=== PATIENT | male | born 1940 | race Caucasian/White ===

== ENCOUNTER 2018-12-17 10:47 | Emergency (ER) | payer OTHER ==
[2018-12-17] MEDS ORDERED: LIDOCAINE 1% W/EPI 1:100,000 MDV 20 ML VIAL ONE (11:06)
[2018-12-17] MEDS ORDERED: TETANUS & DIPHTHERIA TOX,ADULT 0.5 ML VIAL ONE (11:46)
--- NOTE | 2018-12-17 11:47 | ER ---
Nurse's Notes [facility] Name: Rajendra Collado Age: 77 yrs Sex: Male : 1940 Arrival Date: 12/17/2018 Time: 10:49 Bed 16 Private MD: Diagnosis: Laceration without foreign body of left hand Presentation: 12/17 10:59 Presenting complaint: Patient states: "I cut my left hand with a mirror". Pt's aa5 states "I think he takes blood thinners but I don't remember the name". Laceration noted to left hand,moderate bleeding noted, dressing applied. 10:59 Transition of care: patient was not received from another setting of care. Onset of aa5 symptoms was December 17, 2018. Risk Assessment: Do you want to hurt yourself or someone else? Patient reports no desire to harm self or others. Initial Sepsis Screen: Does the patient meet any 2 criteria? No. Patient's initial sepsis screen is negative. Does the patient have a suspected source of infection? No. Patient's initial sepsis screen is negative. Care prior to arrival: None. 10:59 Method Of Arrival: Ambulatory aa5 10:59 Acuity: CHRIS 4 aa5 11:10 Complicating Factors: There are no complicating factors for this patient. rb1 Historical: - Allergies: 11:00 No Known Allergies; aa5 - PMHx: 11:00 Hypertension; Myocardial infarction; aa5 - PSHx: 11:00 Heart stents; aa5 - Immunization history:: Adult Immunizations up to date. - Ebola Screening: : No symptoms or risks identified at this time. - Social history:: Smoking status: Patient/guardian denies using tobacco. Screenin:10 Abuse screen: Denies threats or abuse. Nutritional screening: No deficits noted. rb1 Tuberculosis screening: No symptoms or risk factors identified. Fall Risk None identified. Assessment: 11:10 General: Appears in no apparent distress. comfortable, Behavior is calm, cooperative. rb1 Pain: Denies pain. Neuro: Level of Consciousness is awake, alert, obeys commands, Oriented to person, place, time, situation. Cardiovascular: Capillary refill < 3 seconds is brisk in bilateral fingers. Respiratory: Airway is patent Respiratory effort is even, unlabored, Respiratory pattern is regular, symmetrical. GI: No signs and/or symptoms were reported involving the gastrointestinal system. : No signs and/or symptoms were reported regarding the genitourinary system. Derm: Skin is pink, warm \\T\\ dry. Musculoskeletal: Range of motion: intact in all extremities. Injury Description: Laceration sustained to medial aspect of left hand is bleeding moderately, is bleeding moderately. 12:00 Reassessment: Patient appears in no apparent distress at this time. Patient and/or rb1 family updated on plan of care and expected duration. Pain level reassessed. Patient is alert, oriented x 3, equal unlabored respirations, skin warm/dry/pink. Vital Signs: 11:00 BP 148 / 84; Pulse 65; Resp 16 S; Temp 98.6(O); Pulse Ox 98% on R/A; aa5 12:00 BP 141 / 91; Pulse 64; Resp 17; Pulse Ox 99% on R/A; Pain 0/10; rb1 ED Course: 10:49 Patient arrived in ED. as 10:59 Shilo Brown PA is PHCP. jr8 10:59 Jaquan Zambrano MD is Attending Physician. jr8 10:59 Arm band placed on Patient placed in an exam room, on a stretcher. aa5 11:02 Triage completed. aa5 11:10 Patient has correct armband on for positive identification. Bed in low position. Call rb1 light in reach. Side rails up X 1. Pulse ox on. NIBP on. 11:44 Claribel Real, RN is Primary Nurse. rb1 12:18 No provider procedures requiring assistance completed. rb1 12:18 Patient did not have IV access during this emergency room visit. rb1 Administered Medications: 11:40 Drug: Lidocaine-Epinephrine -1%: (1:100,000) 20 ml Volume: 20 ml; Route: Infiltration; jr8 12:04 Drug: Tetanus-Diphtheria Toxoid Adult 0.5 ml {Instrumental Teacher: [employer]. Exp: rb1 07/26/2020. Lot #: [id number]. } Route: IM; Site: left deltoid; 12:18 Follow up: Response: No adverse reaction rb1 Outcome: 11:47 Discharge ordered by . jr8 12:18 Patient left the ED. rb1 12:18 Discharged to home ambulatory, with family. rb1 12:18 Condition: stable 12:18 Discharge instructions given to patient, Instructed on discharge instructions, follow up and referral plans. Demonstrated understanding of instructions, follow-up care, Prescriptions given X none Signatures: Audrey Huang Audri, RN RN aa5 Shilo Brown PA PA jr8 Claribel Real, RN RN rb1 Corrections: (The following items were deleted from the chart) 12:34 12:30 Patient left the ED. rb1 rb1
--- NOTE | 2018-12-17 11:48 | EDPHYS ---
Physician Documentation [facility] Name: Rajendra Collado Age: 77 yrs Sex: Male : 1940 Arrival Date: 12/17/2018 Time: 10:49 Bed 16 Private MD: ED Physician Jaquan Zambrano HPI: 12/17 11:40 This 77 yrs old Male presents to ER via Ambulatory with complaints of jr8 Laceration To Hand. 11:40 The patient has a laceration occurred at home, and there are no complicating factors. jr8 The laceration(s) is(are) located on the medial aspect of left hand. Onset: The symptoms/episode began/occurred just prior to arrival. Pt was carrying broken mirror and if slipped causing an approximately 5cm laceration to medial aspect of left hand. Historical: - Allergies: 11:00 No Known Allergies; aa5 - PMHx: 11:00 Hypertension; Myocardial infarction; aa5 - PSHx: 11:00 Heart stents; aa5 - Immunization history:: Adult Immunizations up to date. - Ebola Screening: : No symptoms or risks identified at this time. - Social history:: Smoking status: Patient/guardian denies using tobacco. ROS: 11:40 Constitutional: Negative for fever, chills, and weight loss, Eyes: Negative for injury, jr8 pain, redness, and discharge, ENT: Negative for injury, pain, and discharge, Neck: Negative for injury, pain, and swelling, Cardiovascular: Negative for chest pain, palpitations, and edema, Respiratory: Negative for shortness of breath, cough, wheezing, and pleuritic chest pain, Abdomen/GI: Negative for abdominal pain, nausea, vomiting, diarrhea, and constipation, Back: Negative for injury and pain, MS/Extremity: Negative for injury and deformity, Neuro: Negative for headache, weakness, numbness, tingling, and seizure. 11:40 Skin: Positive for laceration(s). Exam: 11:40 Constitutional: This is a well developed, well nourished patient who is awake, alert, jr8 and in no acute distress. Head/Face: Normocephalic, atraumatic. Eyes: Pupils equal round and reactive to light, extra-ocular motions intact. Lids and lashes normal. Conjunctiva and sclera are non-icteric and not injected. Cornea within normal limits. Periorbital areas with no swelling, redness, or edema. ENT: Nares patent. No nasal discharge, no septal abnormalities noted. Tympanic membranes are normal and external auditory canals are clear. Oropharynx with no redness, swelling, or masses, exudates, or evidence of obstruction, uvula midline. Mucous membranes moist. Neck: Trachea midline, no thyromegaly or masses palpated, and no cervical lymphadenopathy. Supple, full range of motion without nuchal rigidity, or vertebral point tenderness. No Meningismus. Chest/axilla: Normal chest wall appearance and motion. Nontender with no deformity. No lesions are appreciated. Cardiovascular: Regular rate and rhythm with a normal S1 and S2. No gallops, murmurs, or rubs. Normal PMI, no JVD. No pulse deficits. Respiratory: Lungs have equal breath sounds bilaterally, clear to auscultation and percussion. No rales, rhonchi or wheezes noted. No increased work of breathing, no retractions or nasal flaring. Abdomen/GI: Soft, non-tender, with normal bowel sounds. No distension or tympany. No guarding or rebound. No evidence of tenderness throughout. MS/ Extremity: Pulses equal, no cyanosis. Neurovascular intact. Full, normal range of motion. Neuro: Awake and alert, GCS 15, oriented to person, place, time, and situation. Cranial nerves II-XII grossly intact. Motor strength 5/5 in all extremities. Sensory grossly intact. Cerebellar exam normal. Normal gait. 11:40 Musculoskeletal/extremity: ROM: intact in all extremities, Circulation is intact in all extremities. Pulses: noted to be 3+ in the right radial artery and left radial artery, Sensation intact. 11:40 Skin: injury, laceration(s), the wound is approximately 5 cm(s), with a depth of 1 cm(s), of the medial aspect of left hand. Vital Signs: 11:00 BP 148 / 84; Pulse 65; Resp 16 S; Temp 98.6(O); Pulse Ox 98% on R/A; aa5 12:00 BP 141 / 91; Pulse 64; Resp 17; Pulse Ox 99% on R/A; Pain 0/10; rb1 Laceration: 11:43 Wound Repair of 5cm ( 2.0in ) subcutaneous laceration to medial aspect of left hand. jr8 Linear shaped.. Minimal bleeding noted.. Distal neuro/vascular/tendon intact. Anesthesia: Local anesthetic administered with 5 mls of 1% lidocaine w/ Epi. Wound prep: Moderate cleansing by me, Wound irrigation with saline by me, Wound explored moderately, Copious irrigation. Skin closed with 5 4-0 Prolene using simple sutures and sterile technique. Patient tolerated well. MDM: 10:59 Patient medically screened. jr8 11:44 Data reviewed: vital signs, nurses notes. Data interpreted: Pulse oximetry: on room air jr8 is 98 %. Interpretation: normal. Counseling: I had a detailed discussion with the patient and/or guardian regarding: the historical points, exam findings, and any diagnostic results supporting the discharge/admit diagnosis. ED course: Hemostasis achieved, wound well approximated, discussed wound care and follow up instructions, CMS intact, no apparent nerve injury. ROM intact in wrist and all fingers. . 12/17 11:40 Order name: Suture Tray Setup; Complete Time: 12:04 jr8 Administered Medications: 11:40 Drug: Lidocaine-Epinephrine -1%: (1:100,000) 20 ml Volume: 20 ml; Route: Infiltration; jr8 12:04 Drug: Tetanus-Diphtheria Toxoid Adult 0.5 ml {Hay Baler: [employer]. Exp: rb1 07/26/2020. Lot #: [id number]. } Route: IM; Site: left deltoid; 12:18 Follow up: Response: No adverse reaction rb1 Disposition: 12:39 Co-signature as Attending Physician, Jaquan Zambrano MD. rn Disposition: 12/17/18 11:47 Discharged to Home. Impression: Laceration without foreign body of left hand. - Condition is Stable. - Discharge Instructions: Laceration Care, Adult, Sutured Wound Care. - Medication Reconciliation Form, Thank You Letter form. - Follow up: Private Physician; When: 7 - 10 days; Reason: Recheck today's complaints, Re-evaluation by your physician, suture removal . - Problem is new. - Symptoms have improved. - Notes: Have stitches removed in 7-10 days See PCP or return to ED if signs of infection including extensive redness, swelling, worsening pain, or foul drainage. Signatures: Jaquan Zambrano MD MD rn Calderon, Audri, RN RN aa5 Shilo Brown PA PA jr8 Claribel Real, RN RN rb1 Corrections: (The following items were deleted from the chart) 12:30 11:47 12/17/2018 11:47 Discharged to Home. Impression: Laceration without foreign body rb1 of left hand. Condition is Stable. Forms are Medication Reconciliation Form, Thank You Letter, Antibiotic Education, Prescription Opioid Use. Follow up: Private Physician; When: 7 - 10 days; Reason: Recheck today's complaints, Re-evaluation by your physician, suture removal . Problem is new. Symptoms have improved. jr8
[2018-12-17 13:03] VITALS: TEMP 98.6
[2018-12-17 13:05] VITALS: BP 141/91; O2SAT 99
== END 2018-12-17 12:30 | disposition home or self-care (01) ==
LOC: ER 10:47
PROC: 0JQK0ZZ Repair Left Hand Subcutaneous Tissue and Fascia, Open Approach (ICD-10-PCS; principal; 2018-12-17)
DX: S61.412A Laceration without foreign body of left hand, initial encounter (principal); W25.XXXA Contact with sharp glass, initial encounter; Y93.9 Activity, unspecified; Y92.9 Unspecified place or not applicable; Z23 Encounter for immunization
CPT/HCPCS: 90471; 90714; 99283

== ENCOUNTER 2019-12-06 07:32 | Day surgery (SDC) | payer OTHER ==
[2019-12-04 13:55] LABS: Absolute Lymphocytes (CBC) 1.7 K/uL (0.7-4.9); Basophils % 0.6 % (0-1.3); Hematocrit 45.4 % (39.6-49.0); Lymphocytes % 25.8 % (15.3-44.8); MPV 9.4 fL (7.6-11.3); RBC Red Blood Cell Count 4.87 M/uL (4.33-5.43)
[2019-12-04 13:56] LABS: BUN Blood Urea Nitrogen 22 mg/dL (7-18); Bicarbonate 28 mmol/L (21-32); Glucose Level 92 mg/dL (74-106); Potassium 4.1 mmol/L (3.5-5.1); Sodium Level 142 mmol/L (136-145)
--- OUTSIDE RECORDS SUMMARY | 2019-12-06 07:46 | XMS REPORT | Continuity of Care Document ---
:1940 Author Organization [facility] t Address [address] [place] [address] [address]. [address]. [address] [place] [address] Care Team Providers Name Role Phone Doctor Unassigned, Name Attending Clinician Unavailable Problems This patient has no known problems. Allergies, Adverse Reactions, Alerts This patient has no known allergies or adverse reactions. Medications This patient has no known medications. Procedures This patient has no known procedures. Encounters Start End Encounter Admission Attending Care Care Encounter Source Date/Time Date/Time Type Type Clinicians Facility Department ID 2019-08-05 2019-08-05 Orders Doctor MIGUEL [id number] 13 00:00:00 00:00:00 Only UnassignedJOSE CRUZ [id number] [place] [facility] [id number] Results This patient has no known results.
--- OUTSIDE RECORDS SUMMARY | 2019-12-06 07:46 | XMS REPORT | Summary of Care ---
:1940 Author Organization [facility] - Health Address [address] [place] [address] Care Team Providers Name Role Phone Pcp, Does Not Have A Primary Care Provider Encounter Details Date Type Department Care Team Description 08/05/2019 Orders Only [facility] Doctor Unassigned, No [address] [facility] [place] [address] [address] [id number] Allergies No Known Allergiesdocumented as of this encounter (statuses as of 09/08/2019) Medications Not on filedocumented as of this encounter (statuses as of 09/08/2019) Active Problems Not on filedocumented as of this encounter (statuses as of 09/08/2019) Social History Tobacco Use Types Packs/Day Years Used Date Never Assessed Sex Assigned at Date Recorded Not on file Job Start Date Occupation Industry Not on file Not on file Not on file Travel History Travel Start Travel End No recent travel history available. COVID-19 Exposure Response Date Recorded In the last month, have you been in contact Unable to assess 07/09/2019 10:34 AM CDT with someone who was confirmed or suspected to have Coronavirus / COVID-19? documented as of this encounter Last Filed Vital Signs Not on filedocumented in this encounter Plan of Treatment Health Maintenance Due Date Last Done Comments DTaP,Tdap,and Td Vaccines (1 - 1949 Tdap) Depression Screening 1950 Zoster Recombinant Vaccine 1988 (SHINGRIX) (1 of 2) Medicare Wellness Visit 01/01/2004 PNEUMOCOCCAL VACCINES 65+ (1 of 2 01/01/2004 - PCV13) INFLUENZA VACCINE (Season Ended) 2019 12/24/2017, 12/2016, 02/25/2015, Additional history exists documented as of this encounter Procedures Procedure Name Priority Date/Time Associated Diagnosis Comme nts AUTHORIZATION FOR RELEASE Routine 08/05/2019 12:01 AM OF PHI CDT documented in this encounter Results Not on filedocumented in this encounter Insurance Payer Benefit Plan / Subscriber ID Effective Dates Phone Addre ss Type Group MEDICARE MEDICARE PART xxxxxxxxxxx 2003-[place] [phone] Medicare [place] 2 [id number] [place] [id number] documented as of this encounter
[2019-12-06] MEDS ORDERED: GLYCOPYRROLATE 0.2 MG/ML SYR ONE (07:50)
[2019-12-06] MEDS ORDERED: Phenylephrine HCl 10 MG/ML 1 ML VIAL ONE (07:50)
[2019-12-06] MEDS ORDERED: propofoL 200 MG/20 ML VIAL IV ONE ×2 (07:50→08:30)
[2019-12-06] MEDS ORDERED: LIDOCAINE 1% MPF 30 ML VIAL ONE (07:50)
[2019-12-06] MEDS ORDERED: NS 0.9% VIAL 10 ML ONE (07:50)
[2019-12-06] MEDS ORDERED: Ringers Lactate 1,000 ML IV ONE (08:17)
[2019-12-06 09:52] VITALS: BP 118/64; TEMP 98; O2SAT 94
--- NOTE | 2019-12-07 04:28 | ENDO RPT ---
[address], [address] COLONOSCOPY PROCEDURE REPORT EXAM DATE: 12/06/2019 PATIENT NAME: Rajendra Collado MR #: [id number] BIRTHDATE: 1940 ATTENDING: Thong Delong DR STATUS: outpatient MANAGER OF DRILLING: Cortney Dunne RN and Alonso Farr [facility] INDICATIONS: The patient is a 78 yr old Male here for a colonoscopy due to change in bowel habits, weight loss, pencil thin stools PROCEDURE PERFORMED: Screening Colonoscopy MEDICATIONS: Per Anesthesia. ESTIMATED BLOOD LOSS: None CONSENT: The patient understands the risks and benefits of the procedure and understands that these risks include, but are not limited to: sedation, allergic reaction, infection, perforation and/or bleeding. Alternative means of evaluation and treatment include, among others: physical exam, x-rays, and/or surgical intervention. The patient elects to proceed with this endoscopic procedure. DESCRIPTION OF PROCEDURE: During intra-op preparation period all mechanical medical equipment was checked for proper function. Hand hygiene and appropriate measures for infection prevention was taken. Procedure, possible complications, alternatives including, but not limited to possibility of bleeding, perforation, tear, infection, sepsis, need for surgery, need for blood transfusion, were explained to the patient. After the risks, benefits and alternatives of the procedure were thoroughly explained, Informed consent was verified, confirmed and timeout was successfully executed by the treatment team. The patient was placed in the left lateral position. A digital rectal exam was performed and revealed decreased sphincter tone, A digital rectal exam was performed and revealed internal hemorrhoids, and A digital rectal exam was performed and revealed several skin tags. After appropriate level of anesthesia, the scope was passed. The EC-[id number] ([id number]) endoscope was introduced through the anus and advanced to the cecum, which was identified by both the appendix and ileocecal valve. The quality of the prep was fair. The instrument was then slowly withdrawn as the colon was fully examined. Scope withdrawal time was 9 minutes. COLON FINDINGS: There was moderate diverticulosis noted throughout the entire examined colon with associated luminal narrowing. No bleeding was noted from the diverticulosis. Moderate sized internal hemorrhoids were found. Retroflexed views revealed no abnormalities. The scope was then completely withdrawn from the patient and the procedure terminated. ADVERSE EVENTS: There were no complications. IMPRESSIONS: 1. There was moderate diverticulosis noted throughout the entire examined colon 2. Moderate sized internal hemorrhoids RECOMMENDATIONS: 1. await biopsy results 2. follow-up: office 2 week(s) 3. Monitor for any evidence of rectal bleeding. 4. low fiber / diverticular diet 5. increase dietary water 6. hemorrhoidal hygiene RECALL: Thong Delong DR eSigned: Thong Delong DR 12/06/2019 8:59 AM cc: CPT CODES: ICD9 CODES: PATIENT NAME: Rajendra Collado MR#: [id number]
== END 2019-12-06 09:40 | disposition home health service (06) ==
LOC: OR 07:32
PROVIDERS: ATTEND Surgery
PROC: 0DJD8ZZ Inspection of Lower Intestinal Tract, Via Natural or Artificial Opening Endoscopic (ICD-10-PCS; principal; 2019-12-06 08:30)
DX: K57.30 Diverticulosis of large intestine without perforation or abscess without bleeding (principal); R63.4 Abnormal weight loss; R19.4 Change in bowel habit; Z20.828 Contact with and (suspected) exposure to other viral communicable diseases; K64.8 Other hemorrhoids
CPT/HCPCS: 85025; 80048; 36415; 45378; U0002; J2704; J2370; J7120

== ENCOUNTER 2020-09-13 20:48 | Emergency (ER) | payer OTHER ==
--- OUTSIDE RECORDS SUMMARY | 2020-09-13 20:58 | XMS REPORT | Continuity of Care Document ---
:1940 Author Organization [facility] t Address [address] [place] [address] Dr. Wright. [address] [place] [address] Care Team Providers Name Role Phone Doctor [...] ID 2019-08-05 2019-08-05 Orders Doctor MIGUEL [id number] 13 00:00:00 00:00:00 Only UnassignedJOSE CRUZ [id number] [place] [facility] [id number] Results This patient has no known results.
[2020-09-13 21:56] LABS: Absolute Lymphocytes (CBC) 0.9 K/uL (0.7-4.9); Basophils % 0.3 % (0-1.3); Bilirubin Direct 0.3 mg/dL (0-0.2); Bilirubin Total 1.2 mg/dL (0.2-1.0); Lymphocytes % 7.5 % (15.3-44.8); MPV 9.3 fL (7.6-11.3); Potassium 3.4 mmol/L (3.5-5.1); Protein, Total 6.5 g/dL (6.4-8.2)
--- NOTE | 2020-09-13 21:56 | RAD REPORT ---
EXAM DESCRIPTION: RAD - Tib Fib Right - 09/13/2020 9:26 pm CLINICAL HISTORY: Right leg pain FINDINGS: No fracture is seen. Mild anterior soft tissue swelling upper aspect of the lower leg
--- NOTE | 2020-09-13 22:54 | ER ---
Nurse's Notes [facility] Name: Rajendra Collado Age: 79 yrs Sex: Male : 1940 Arrival Date: 09/13/2020 Time: 21:00 Bed 7 Private MD: Diagnosis: Hematoma leg ;Pain in right leg Presentation: 09/13 21:09 Chief complaint: Spouse and/or significant other states: pt fell yesterday was checked bb out by EMS but later started having right leg pain with swelling and bruising. Coronavirus screen: At this time, the client does not indicate any symptoms associated with coronavirus-19. Ebola Screen: No symptoms or risks identified at this time. Initial Sepsis Screen: Does the patient meet any 2 criteria? No. Patient's initial sepsis screen is negative. Does the patient have a suspected source of infection? No. Patient's initial sepsis screen is negative. Risk Assessment: Do you want to hurt yourself or someone else? Unable to obtain. Onset of symptoms was September 13, 2020. 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 - Social history:: Smoking status: unknown. Screenin:20 Abuse screen: Denies threats or abuse. Nutritional screening: No deficits noted. ea Tuberculosis screening: No symptoms or risk factors identified. Fall Risk None identified. Assessment: 21:10 General: Appears in no apparent distress. Behavior is calm, cooperative, appropriate ea for age. Pain: Complains of pain in right lynn. Neuro: Level of Consciousness is awake, alert, obeys commands, Oriented to person. Respiratory: Airway is patent Respiratory effort is even, unlabored, Respiratory pattern is regular, symmetrical. Derm: Bruising that is dark purple, on right lynn blister noted to lynn. 22:52 Reassessment: Patient and/or family updated on plan of care and expected duration. Pain ea level reassessed. Pt alert and oriented to self and place. Respirations even and unlabored. Denies pain at this time. 23:03 Reassessment: Patient and/or family updated on plan of care and expected duration. Pain ea level reassessed. Patient is alert, oriented x 3, equal unlabored respirations, skin warm/dry/pink. Discharge instruction given to patient verbalized the understanding of instruction. Vital Signs: 21:09 BP 138 / 61; Pulse 69; Resp 16 S; Temp 99.5(O); Pulse Ox 96% on R/A; Weight 108.86 kg bb (R); 22:51 BP 130 / 67; Pulse 69; Resp 18; Pulse Ox 98% on R/A; ea ED Course: 21:00 Patient arrived in ED. ag3 21:02 Shilo Brown PA is PHCP. ea 21:02 Jaquan Zambrano MD is Attending Physician. ea 21:10 Lubna Fonseca, HOWARD is Primary Nurse. ea 21:10 Triage completed. bb 21:10 Arm band placed on Patient placed in an exam room, on a stretcher, on pulse oximetry. bb Family accompanied patient. 21:20 Patient has correct armband on for positive identification. Bed in low position. Call ea light in reach. Side rails up X2. 21:26 XRAY Tib Fib RIGHT In Process Unspecified. EDMS 21:33 Inserted saline lock: 20 gauge in right antecubital area, using aseptic technique. jm8 22:02 US Extremity Venous Unilateral Ltd In Process Unspecified. EDMS 22:54 No provider procedures requiring assistance completed. ea 23:03 IV discontinued, intact, bleeding controlled, No redness/swelling at site. Pressure ea dressing applied. Administered Medications: 22:52 Drug: Lidocaine (1 %) 5 mg Route: Infiltration; jm8 22:55 Follow up: Response: No adverse reaction ea Outcome: 22:53 Discharge ordered by . yancy 23:03 Discharged to home via wheelchair, with family. ea 23:03 Condition: stable 23:03 Discharge instructions given to patient, family, Instructed on discharge instructions, follow up and referral plans. medication usage, Demonstrated understanding of instructions, follow-up care, medications, Prescriptions given X 1. 23:04 Patient left the ED. ea Signatures: Dispatcher [employer] EDMS Kate Brown RN RN bb Roszak, Josh, PA PA jr8 Antunez, Elena, RN RN ea Gomez, Roya ag3 Neil Koo, RN RN jm8
--- NOTE | 2020-09-13 22:54 | EDPHYS ---
Physician Documentation [facility] Name: Rajendra Collado Age: 79 yrs Sex: Male : 1940 Arrival Date: 09/13/2020 Time: 21:00 Bed 7 Private MD: ED Physician Jaquan Zambrano HPI: 09/13 22:17 This 79 yrs old Male presents to ER via Wheelchair with complaints of Leg jr8 Pain. 22:17 Onset: The symptoms/episode began/occurred acutely, today. Modifying factors: The jr8 symptoms are alleviated by remaining still, the symptoms are aggravated by weight bearing. Associated signs and symptoms: Pertinent positives: fever. Severity of symptoms: At their worst the symptoms were moderate, in the emergency department the symptoms are unchanged. The patient has not experienced similar symptoms in the past. The patient has not recently seen a physician. of patient stated that she noticed what looked to be like a bruise to his right lynn. Stated that today it has worsened and now has made a blister. Stated that patient normally can get around with assistance but now is unable to bear much weight on that leg. 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 - Social history:: Smoking status: unknown. ROS: 22:17 Eyes: Negative for injury, pain, redness, and discharge, ENT: Negative for injury, jr8 pain, and discharge, Neck: Negative for injury, pain, and swelling, Cardiovascular: Negative for chest pain, palpitations, and edema, Respiratory: Negative for shortness of breath, cough, wheezing, and pleuritic chest pain, Abdomen/GI: Negative for abdominal pain, nausea, vomiting, diarrhea, and constipation, Back: Negative for injury and pain, Skin: Negative for injury, rash, and discoloration, Neuro: Negative for headache, weakness, numbness, tingling, and seizure. 22:17 MS/extremity: Positive for ecchymosis, erythema, pain, swelling, tenderness, warmth, of the right leg. Exam: 22:26 Constitutional: This is a well developed, well nourished patient who is awake, alert, jr8 and in no acute distress. Cardiovascular: Regular rate and rhythm with a normal S1 and S2. No gallops, murmurs, or rubs. Normal PMI, no JVD. No pulse deficits. Respiratory: Lungs have equal breath sounds bilaterally, clear to auscultation and percussion. No rales, rhonchi or wheezes noted. No increased work of breathing, no retractions or nasal flaring. Abdomen/GI: Soft, non-tender, with normal bowel sounds. No distension or tympany. No guarding or rebound. No evidence of tenderness throughout. Back: No spinal tenderness. No costovertebral tenderness. Full range of motion. Skin: Warm, dry with normal turgor. Normal color with no rashes, no lesions, and no evidence of cellulitis. Neuro: Awake and alert, GCS 15, oriented to person, place, and situation. Cranial nerves II-XII grossly intact. Motor strength 5/5 in all extremities. Sensory grossly intact. 22:26 Musculoskeletal/extremity: Extremities: grossly normal except: noted in the right lynn: Patient has 2+ pitting edema on right lower extremity. Mild warmth noted. Mild erythema and bronzing also noted. Patient has about a 2.5 cm raised blood blister with possible exudative debris noted to anterior mid tibia region with surrounding ecchymosis and fluctuance that extends another 5 cm around the blister, ROM: intact in all extremities, Circulation is intact in all extremities. Sensation intact. Vital Signs: 21:09 BP 138 / 61; Pulse 69; Resp 16 S; Temp 99.5(O); Pulse Ox 96% on R/A; Weight 108.86 kg bb (R); 22:51 BP 130 / 67; Pulse 69; Resp 18; Pulse Ox 98% on R/A; ea MDM: 21:17 Patient medically screened. 8 22:50 Data reviewed: vital signs, nurses notes, lab test result(s), radiologic studies, plain jr8 films, ultrasound. Data interpreted: Pulse oximetry: on room air is 96 %. Interpretation: normal. Counseling: I had a detailed discussion with the patient and/or guardian regarding: the historical points, exam findings, and any diagnostic results supporting the discharge/admit diagnosis, lab results, radiology results, the need for outpatient follow up, a family practitioner, to return to the emergency department if symptoms worsen or persist or if there are any questions or concerns that arise at home. ED course: Clinical concern that there may have been abscess material in bruised region. Lanced area but was only clotted blood without infective material. Most likely hematoma from trauma. Patient has dementia history so could of fallen without knowing. This was discussed with at bedside who agrees. Will send home on Abx and to f/u with PCP. If fevers or he gets worse knows to come back . 09/13 21:18 Order name: CBC with Diff; Complete Time: 21:57 [facility] 09/13 21:18 Order name: Basic Metabolic Panel; Complete Time: 21:57 [facility] 09/13 21:18 Order name: LFT's; Complete Time: 21:57 [facility] 09/13 22:17 Order name: Procalcitonin [facility] 09/13 22:17 Order name: Blood Culture Adult (2) [facility] 09/13 22:18 Order name: Procalcitonin [facility] 09/13 21:12 Order name: XRAY Tib Fib RIGHT; Complete Time: 21:58 ea 09/13 21:18 Order name: US Extremity Venous Unilateral Ltd [facility] 09/13 21:18 Order name: IV; Complete Time: 21:33 [facility] 09/13 22:18 Order name: Blood Culture [facility] 09/13 22:52 Order name: Sampson Wrap; Complete Time: 22:52 [facility] Administered Medications: 22:52 Drug: Lidocaine (1 %) 5 mg Route: Infiltration; [facility] 22:55 Follow up: Response: No adverse reaction Disposition: 23:23 Co-signature as Attending Physician, Jaquan Zambrano MD. rn Disposition Summary: 09/13/20 22:53 Discharge Ordered Location: Home jr8 Problem: new jr8 Symptoms: have improved jr8 Condition: Stable jr8 Diagnosis - Hematoma leg jr8 - Pain in right leg jr8 Followup: jr8 - With: Private Physician - When: 5 - 6 days - Reason: Recheck today's complaints, Continuance of care, Re-evaluation by your physician Discharge Instructions: - Discharge Summary Sheet jr8 - Hematoma jr8 Forms: - Medication Reconciliation Form jr8 - Thank You Letter jr8 - Antibiotic Education jr8 - Prescription Opioid Use jr8 Prescriptions: - Cephalexin 500 mg Oral Capsule - take 1 capsule by ORAL route every 8 hours for 7 days; 21 capsule; Refills: 0, jr8 Product Selection Permitted Signatures: Dispatcher [employer] Kate Tang RN RN Jaquan Boland MD MD rn Roszak, Josh, PA PA jr8 Neil Koo RN RN jm8 Lubna Fonseca RN, ea
[2020-09-13] MEDS ORDERED: LIDOCAINE 1% MPF 5 ML VIAL ONE (23:04)
[2020-09-13 23:12] VITALS: TEMP 99.5
[2020-09-13 23:14] VITALS: BP 130/67; O2SAT 98
--- NOTE | 2020-09-15 13:42 | RAD REPORT ---
EXAM DESCRIPTION: Extremity Venous Uni Ltd [employer]: US EXTREMITY VEINS UNILATERAL CLINICAL HISTORY: Pain;Swelling Extremity Venous Uni Ltd. COMPARISON: None. TECHNIQUE: Survey ultrasound imaging of the deep venous system of right lower extremity was performe d including color and spectral Doppler evaluation with account manager sales representative images obtained. Segmental veno us compression and calf vein augmentation were performed. FINDINGS: Common femoral vein: Patent without thrombus. Normal respiratory phasicity is indirect reyes dence of central patency. Cephalad greater saphenous vein: Patent without thrombus. Normal respiratory phasicity is indirect ev idence of central patency. Femoral vein: Patent without thrombus. Popliteal vein: Patent without thrombus. Normal response to augmentation. Calf veins: Patent without thrombus. In the region of palpable concern along the anterior aspect of the lower leg, there is a heterogeneou s collection which measures 2.5 x 1.8 x 1.9 cm. No flow on color Doppler imaging. Surrounding subcuta neous edema. Incidentally noted popliteal fossa cyst measuring 5.1 x 2.9 x 3.8 cm. IMPRESSION: 1. Negative for right lower extremity deep venous thrombosis. 2. Heterogeneous collection in the anterior lower leg subcutaneous tissues with mild surrounding ed indigo. Correlate for abscess versus hematoma, depending on the clinical setting. 3. Incidentally noted popliteal fossa cyst. Electronically signed by: Sandra León MD 09/13/2020 10:29 PM CDT Due to temporary technical issues with the PACS/Fluency reporting system, reports are being signed by the in house radiologists without review as a courtesy to insure prompt reporting. The interpreting radiologist is fully responsible for the content of the report.
== END 2020-09-13 23:04 | disposition home or self-care (01) ==
LOC: ER 20:48
DX: S80.11XA Contusion of right lower leg, initial encounter (principal); I10 Essential (primary) hypertension; F03.90 Unspecified dementia, unspecified severity, without behavioral disturbance, psychotic disturbance, mood disturbance, and anxiety; Z95.818 Presence of other cardiac implants and grafts
CPT/HCPCS: 36415; 80048; 80076; 84145; 85025; 87040; 87077; 87186; 87205; 93971; 99284

== ENCOUNTER 2022-10-28 08:58 | Emergency (ER) | payer OTHER ==
--- OUTSIDE RECORDS SUMMARY | 2022-10-28 09:04 | XMS REPORT | Continuity of Care Document ---
:1940 Author Organization [facility] t Address [address] [place] [address] [place] [id number] Care Team Providers Name Role Phone [place], [facility] Primary Care Physician Therapy, [facility] Covid Infusion Attending Clinician Unavailable Jayda Harden MD Attending Clinician JAYDA HARDEN Attending Clinician Unavailable Ruiz Walker Attending Clinician Peter MORAN, Luis Felipe Attending Clinician LUIS FELIPE GREEN Attending Clinician Unavailable Doctor Unassigned, [place] Attending Clinician Unavailable Roseanne Fitzgerald Attending Clinician [phone] Heidi LAWRENCE, Jaycee Attending Clinician Unavailable Antonio Davey MD Attending Clinician Brandin Sawyer MD, Mark Anthony Hess Attending Clinician [phone] Josué Coburn MD Attending Clinician Concha Azul MD Attending Clinician ANTONIO DAVEY Attending Clinician Unavailable Josué Coburn MD Admitting Clinician ANTONIO DAVEY Admitting Clinician Unavailable Payers Payer Name Policy Type Policy Number Effective Date Expiration Date S ource Problems Condition Condition Condition Status Onset Resolution Last Treating Co mments Source Name Details Category Date Date Treatment Clinician Date Sepsis Sepsis Disease Active 2020-0 Univers 7-18 ity of 00:00: [place] 00 [facility] Branch Allergies, Adverse Reactions, Alerts Allergy Allergy Status Severity Reaction(s) Onset Inactive Treating Comm ents Source Name Type Date Date Clinician DIPHENHY DRUG Active Low Hallucinates 2020-03 [place] DRAMINE INGREDI 04-09 ity of HCL 00:00: [place] 00 [facility] HALOPERI DRUG Active Low Hallucinates 2020-03 [place] DOL INGREDI 04-09 ity of LACTATE 00:00: [place] 00 [facility] Diphenhy Propensi Active Hallucinatio 2020-03 Univers dramine ty to ns 04-09 ity of Hcl adverse 00:00: [place] reaction 00 Medical s Branch Haloperi Propensi Active Hallucinatio 2020-03 Univers dol ty to ns 04-09 ity of Lactate adverse 00:00: [place] reaction Medical s Branch NO KNOWN Drug Active Univers ALLERGIE Class ity of S [facility] Social History Social Habit Start Date Stop Date Quantity Comments Source Exposure to 2021-10-03 2021-10-13 Yes [facility] SARS-CoV-2 00:00:00 17:30:00 [facility] (event) [place] Tobacco use and 2021-06-14 2021-06-14 Smokeless tobacco Un iversity of exposure 00:00:00 00:00:00 non-user [facility] Sex Ass[birth year] At [birth year] Universit y of 00:00:00 00:00:00 [facility] Smoking Status Start Date Stop Date Source Unknown if ever smoked [facility] [place] [facility] Never smoked tobacco [facility] Medications Ordered Filled Start Stop Current Ordering Indication Dosage Frequency Signature Comments Components Source Medication Medication Date Date Medication? Clinician (SIG) Name Name memantine Yes 10mg Take 10 mg [place] 10 mg 8-01 by mouth 2 ity of tablet 17:33: (two) [place] 13 times Medical daily. Branch memantine Yes 10mg Take 10 mg [place] 10 mg 8-01 by mouth 2 ity of tablet 17:33: (two) [place] 13 times Medical daily. Branch amLODIPine Yes 5mg Take 5 mg [place] 5 mg tablet 4-02 by mouth ity of 13:40: daily. [address] donepeziL Yes 10mg Take 10 mg [place] 10 mg 4-02 by mouth ity of tablet 13:40: at [place] [address] bedtime. Medical Branch SERTraline 0 Yes 50mg Take 50 mg U nivers 50 mg 4-02 by mouth ity of tablet 13:40: daily. [place] [address] Medical Branch losartan 25 2021-0 Yes 25mg Take 25 mg Univers mg tablet 4-02 by mouth ity of 13:40: daily. [place] [address] Medical Branch atorvastati 2021-0 Yes 20mg Take 20 mg Univers n 20 mg 4-02 by mouth ity of tablet 13:40: at [place] [address] bedtime. Medical Branch memantine 0 Yes 10mg Take 10 mg [place] 10 mg 4-02 by mouth 2 ity of tablet 13:40: (two) [place] 50 times Medical daily. Branch aspirin 81 2021-0 Yes 81mg Take 81 mg U nivers mg chewable 4-02 by mouth ity of tablet 13:40: daily. [address] Branch amLODIPine 2021-0 Yes 5mg Take 5 mg [place] 5 mg tablet 4-02 by mouth ity of 13:40: daily. [place] [address] Medical Branch donepeziL 2021-0 Yes 10mg Take 10 mg [place] 10 mg 4-02 by mouth ity of tablet 13:40: at [place] [address] bedtime. Medical Branch SERTraline 2021-0 Yes 50mg Take 50 mg U nivers 50 mg 4-02 by mouth ity of tablet 13:40: daily. [address] losartan 25 2021-0 Yes 25mg Take 25 mg Univers mg tablet 4-02 by mouth ity of 13:40: daily. [place] [address] Medical Branch atorvastati 2021-0 Yes 20mg Take 20 mg Univers n 20 mg 4-02 by mouth ity of tablet 13:40: at [place] [address] bedtime. Medical Branch memantine 2021-0 Yes 10mg Take 10 mg [place] 10 mg 4-02 by mouth 2 ity of tablet 13:40: (two) [place] 50 times Medical daily. Branch aspirin 81 2021-0 Yes 81mg Take 81 mg U nivers mg chewable 4-02 by mouth ity of tablet 13:40: daily. [place] [address] Medical Branch amLODIPine 2021-0 Yes 5mg Take 5 mg [place] 5 mg tablet 4-02 by mouth ity of 13:40: daily. [place] [address] Medical Branch donepeziL Yes 10mg Take 10 mg [place] 10 mg 4-02 by mouth ity of tablet 13:40: at [place] [address] bedtime. Medical Branch SERTraline 0 Yes 50mg Take 50 mg U nivers 50 mg 4-02 by mouth ity of tablet 13:40: daily. [place] [address] Medical Branch losartan 25 0 Yes 25mg Take 25 mg Univers mg tablet 4-02 by mouth ity of 13:40: daily. [place] [address] Medical Branch atorvastati 0 Yes 20mg Take 20 mg Univers n 20 mg 4-02 by mouth ity of tablet 13:40: at [place] [address] bedtime. Medical Branch aspirin 81 0 Yes 81mg Take 81 mg U nivers mg chewable 4-02 by mouth ity of tablet 13:40: daily. [place] [address] Medical Branch amLODIPine 0 Yes 5mg Take 5 mg [place] 5 mg tablet 4-02 by mouth ity of 13:40: daily. [place] [address] Medical [place] donepeziL Yes 10mg Take 10 mg [place] 10 mg 4-02 by mouth ity of tablet 13:40: at [place] [address] bedtime. Medical Branch SERTraline Yes 50mg Take 50 mg U nivers 50 mg 4-02 by mouth ity of tablet 13:40: daily. [address] losartan 25 0 Yes 25mg Take 25 mg Univers mg tablet 4-02 by mouth ity of 13:40: daily. [place] [address] Medical [place] atorvastati Yes 20mg Take 20 mg Univers n 20 mg 4-02 by mouth ity of tablet 13:40: at [place] [address] bedtime. Medical Branch aspirin 81 0 Yes 81mg Take 81 mg U nivers mg chewable 4-02 by mouth ity of tablet 13:40: daily. [place] [address] Medical Branch sulfamethox Yes [id number] 1{tbl} Take 1 Univers azole-trime 06-14 [id number] tablet by i ty of thoprim 00:00: mouth 2 [place] (BACTRIM 00 (two) Medical DS) 800-160 times Branch mg per daily. tablet mupirocin 2 Yes [id number] Apply to Univers % ointment 4-02 [id number] area(s) 3 it y of 00:00: (three) [place] 00 times Medical daily. Branch sulfamethox 2021-0 Yes [id number] 1{tbl} Take 1 Univers azole-trime 4- [id number] tablet by i ty of thoprim 00:00: mouth 2 [place] (BACTRIM 00 (two) Medical DS) 800-160 times Branch mg per daily. tablet mupirocin 2 2021-0 Yes [id number] Apply to Univers % ointment 4- 397442 area(s) 3 it y of 00:00: (three) [place] 00 times Medical daily. Branch sulfamethox 2021-0 Yes [id number] 1{tbl} Take 1 Univers azole-trime 4- [id number] tablet by i ty of thoprim 00:00: mouth 2 [place] (BACTRIM 00 (two) Medical DS) 800-160 times Branch mg per daily. tablet mupirocin 2 2021-0 Yes [id number] Apply to Univers % ointment 4- 783580 area(s) 3 it y of 00:00: (three) [place] 00 times Medical daily. Branch sulfamethox 2021-0 Yes [id number] 1{tbl} Take 1 Univers azole-trime 4- [id number] tablet by i ty of thoprim 00:00: mouth 2 [place] (BACTRIM 00 (two) Medical DS) 800-160 times Branch mg per daily. tablet mupirocin 2 2021-0 Yes [id number] Apply to Univers % ointment 4- 569675 area(s) 3 it y of 00:00: (three) [place] 00 times Medical daily. Branch amLODIPine 2020-0 Yes 5mg Take 5 mg [place] 5 mg tablet 7-21 by mouth ity of 20:23: daily. [place] [address] Medical Branch donepeziL 2020-0 Yes 10mg Take 10 mg [place] 10 mg 7-21 by mouth ity of tablet 20:23: at [place] [address] bedtime. Medical Branch SERTraline 2020-0 Yes 50mg Take 50 mg U nivers 50 mg 7-21 by mouth ity of tablet 20:23: daily. [address] Branch losartan 25 2020-0 Yes 25mg Take 25 mg Univers mg tablet 7-21 by mouth ity of 20:23: daily. [place] 06 Medical Branch atorvastati 2020-0 Yes 20mg Take 20 mg Univers n 20 mg 7-21 by mouth ity of tablet 20:23: at [place] [address] bedtime. Medical Branch memantine 2020-0 Yes 10mg Take 10 mg [place] 10 mg 7-21 by mouth 2 ity of tablet 20:23: (two) times Medical daily. Branch amLODIPine 2020-0 Yes 5mg Take 5 mg [place] 5 mg tablet 7-21 by mouth ity of 20:23: daily. [place] [address] Medical Branch donepeziL 2020-0 Yes 10mg Take 10 mg [place] 10 mg 7-21 by mouth ity of tablet 20:23: at [place] [address] bedtime. Medical Branch SERTraline 2020-0 Yes 50mg Take 50 mg U nivers 50 mg 7-21 by mouth ity of tablet 20:23: daily. [place] [address] Medical Branch losartan 25 2020-0 Yes 25mg Take 25 mg Univers mg tablet 7-21 by mouth ity of 20:23: daily. [place] [address] Medical Branch atorvastati 2020-0 Yes 20mg Take 20 mg Univers n 20 mg 7-21 by mouth ity of tablet 20:23: at [place] [address] bedtime. Medical Branch memantine 2020-0 Yes 10mg Take 10 mg [place] 10 mg 7-21 by mouth 2 ity of tablet 20:23: (two) times Medical daily. Branch amLODIPine 2020-0 Yes 5mg Take 5 mg [place] 5 mg tablet 7-21 by mouth ity of 20:23: daily. [place] [address] Medical Branch donepeziL 2020-0 Yes 10mg Take 10 mg [place] 10 mg 7-21 by mouth ity of tablet 20:23: at [place] [address] bedtime. Medical Branch SERTraline 2020-0 Yes 50mg Take 50 mg U nivers 50 mg 7-21 by mouth ity of tablet 20:23: daily. [place] [address] Medical Branch losartan 25 2020-0 Yes 25mg Take 25 mg Univers mg tablet 7-21 by mouth ity of 20:23: daily. [place] [address] Medical Branch atorvastati 2020-0 Yes 20mg Take 20 mg Univers n 20 mg 7-21 by mouth ity of tablet 20:23: at [place] [address] bedtime. Medical Branch memantine 2021-0 Yes 10mg Take 10 mg [place] 10 mg - by mouth 2 ity of tablet 20:23: (two) [place] 06 times Medical daily. Branch haloperidol 2020- No 1mg 1 mg, Slow Univers lactate 10-0221 IV Push, ity of (HALDOL) 06:00: 04:53 ONCE, 1 [place] injection 1 00 :00 dose, Wed Med ical mg 10/02/20 at Branch 0100, Routine cefTRIAXone Yes 1000mg 1,000 mg, Univers (ROCEPHIN) 10-02 IV ity of 1,000 mg in 05:00: Piggyback, [place] NaCl 0.9% 00 Q24H ABX, Medic al (NS) 50 mL First dose Bra [facility] MINI-BAG on Wed10/02/20 at 0000, Until Discontinu ed, 50 mL
R halley for Anti-Infec tive: Documented Infection< br>Documen donn Infection Site: Urine<br&g t;Duration of Therapy: 7 days melatonin Yes 9mg 9 mg, Univers (MELATIN) 10-02 Oral, QHS, ity of tablet 9 mg 02:30: First dose [place] 00 (after Medical last Branch modificati on) on Wed10/01/20 at 2130, Until Discontinu ed, Routine cephALEXin Yes [id number] 500mg Take 1 Univers 500 mg 7-21 capsule by ity of capsule 00:00: mouth 4 [place] 00 (four) Medical times Branch daily. cephALEXin Yes [id number] 500mg Take 1 Univers 500 mg 7-21 capsule by ity of capsule 00:00: mouth 4 [place] 00 (four) Medical times Branch daily. cephALEXin Yes [id number] 500mg Take 1 Univers 500 mg 7-21 capsule by ity of capsule 00:00: mouth 4 [place] 00 (four) Medical times Branch daily. cephALEXin 2021- No [id number] 500mg Take 1 Univers 500 mg 7-21 -02 capsule by ity of capsule 00:00: 00:00 mouth 4 [place] 00 :00 (four) Medical times Branch daily. dexMEDEtomi 2020- No .2ug/kg 0.2-1.5 Univers dine 200 09-3020 /h mcg/kg/hr ity o f mcg in 0.9 18:23: 12:59 ?107.5 kg [place] % NaCl 50 24 :21 (5.375-40. Medi katelin mL 3125 Branch (PRECEDEX) mL/hr, RTU IV rounded to infusion 5.38-40.31 mL/hr), IV Infusion, TITRATE, Sedation-R ASS score (0 to -1), Starting Wed09/30/20 at 1323
In itiate infusion at 0.2 mcg/kg/hr and titrate by 0.1 mcg/kg/hr every 30 minutes to goal sedation score. Maximum dose = 1.5 mcg/kg/hr. If goal not maintained at maximum allowed dose, contact prescriber .
SERTraline Yes 50mg 50 mg, Unive rs (ZOLOFT) 09-30 Oral, ity of tablet 50 14:00: DAILY, [place] mg 00 First dose Medical on [facility] Branch 09/30/20 at 0900, Until Discontinu ed, Routine heparin Yes 5000U 5,000 Univers (porcine) 09-30 Units, ity of injection 13:00: Subcutaneo [place] 5,000 Units 00 us, Q12H, Med ical First dose Branch on Wed09/30/20 at 0800, Until Discontinu ed, Routine Potassium 2020- No 40meq 40 mEq, Uni vers Bicarb-Citr 09-30 Oral, ity of ic Acid 10:45: 11:07 ONCE, 1 [place] (EFFER-K) 00 :00 dose, [facility] Medic al effervescen 09/30/20 at Br anch t tablet 40 0545, mEq Routine lactated 2020- No 500mL at 500 Unive rs ringers IV 09-30 mL/hr, 500 it y of infusion 07:00: 08:13 mL, [place] 500 mL 00 :00 Intravenou Medical s, ONCE, 1 Branch dose, [facility] 09/30/20 at 0200, Routine vancomycin 2020- No 15mg/kg 1,500 mg Univers 1500 mg in 09-30 (rounded ity of NS 250 mL 06:00: 12:57 from [place] IV 00 :57 1,768.5 mg Medical Piggyback = 15 mg/kg Bran ch RTU 1,500 ?117.9 mg kg), IV Piggyback, Q12H ABX, First dose on [facility] 09/30/20 at 0100, Until Discontinu ed
Reas on for Anti-Infec tive: Empiric Therapy for Suspected Infection< br>Empiric Therapy Site: Skin / Soft tissue
Duration of therapy: 7 days acetaminoph Yes 650mg 650 mg, [place] en 09-30 Oral, ity of (TYLENOL) 05:58: Q4HPRN, [place] 160 mg/5 mL 53 Starting Medi katelin liquid 650 [facility] 09/30/20 at 0058, Until Discontinu ed, Routine, Temp > 38.5 C meropenem-0 2020-0 2020- No 1000mg 1,000 mg, Univers .9% sodium 09-30 0720 IV ity of chloride 03:30: 22:50 [place], [place] (MERREM) 1 00 :32 Administer Med ical gram/50 mL over 60 Branch RTU Minutes, infusion Q8H ABX, 1,000 mg First dose on [place] 09/29/20 at 2230, Until Discontinu ed, KELLIE
Re stricted use approved by: DODIE 8TH FLOOR
R halley for Anti-Infec tive: Empiric Therapy for Suspected Infection< br>Empiric Therapy Site: Urine
D uration of therapy: 72 hours memantine Yes 10mg 10 mg, Univer s (NAMENDA) 09-30 Oral, BID, ity of tablet 10 02:45: First dose [place] mg 00 on [facility] 09/29/20 at Branch 2145, Until Discontinu ed, Routine
aboriginal community council member approving Restricted medication : JOSUÉ COBURN donepeziL Yes 10mg 10 mg, Univer s (ARICEPT) 09-30 Oral, QHS, ity of tablet 10 02:45: First dose [place] mg 00 on [facility] 09/29/20 at Branch 2145, Until Discontinu ed, Routine LORazepam 0 2020- No .5mg 0.5 mg, Univ ers (ATIVAN) 09-30 Slow IV ity of injection 01:15: 00:22 Push, [place] 0.5 mg 00 :00 ONCE, 1 Medical dose, [facility] 09/29/20 at 2015, STAT NaCl 0.9% 2020- No 1000mL at 999 Uni vers (NS) bolus 09-29 mL/hr, ity of infusion 22:30: 00:00 1,000 mL, [place] 1,000 mL 00 :00 IV Medical Infusion, [place] ONCE, 1 dose, [place] 09/29/20 at 1730, STAT NaCl 0.9% 2020- No 1000mL at 999 Uni vers (NS) bolus 09-29 mL/hr, ity of infusion 22:30: 00:21 1,000 mL, [place] 1,000 mL 00 :00 IV Medical Infusion, [place] ONCE, 1 dose, [place] 09/29/20 at 1730, STAT iopamidol 2020- No [id number] 100mL 100 mL, Univers (ISOVUE 09-29 Intravenou ity o f 370-500 mL) 21:15: 20:01 s, ONCE, 1 [place] injection 00 :00 dose, Sun Medic al 100 mL 09/29/20 at [place] 1615, Routine acetaminoph 2020- No 650mg 650 mg, U nivers en 09-29 Rectal, ity of (TYLENOL) 21:00: 21:00 ONCE, 1 [place] suppository 00 :00 dose, [place] Med ical 650 mg 09/29/20 at [place] 1600, KELLIE ceFEPIme 2020- No 2g 2 g, IV Unive rs (MAXIPIME) 09-29 Piggyback, it y of 2 g in NaCl 19:00: 18:35 ONCE, 1 [place] 0.9% (NS) 00 :00 dose, Sun Medic al 100 mL 09/29/20 at [place] MINI-BAG 1400, 100 mL
Reas on for Anti-Infec tive: Empiric Therapy for Suspected Infection< br>Empiric Therapy Site: Blood
D uration of therapy: 72 hours vancomycin 2020- No 15mg/kg 1,500 mg Univers 1500 mg in 09-29 (rounded ity of NS 500 mL 19:00: 19:36 from [place] IV 00 :00 1,768.5 mg Medical Piggyback = 15 mg/kg Bran ch RTU 1,500 ?117.9 mg kg), IV Piggyback, ONCE, 1 dose, 09/29/20 at 1400
Re ason for Anti-Infec tive: Empiric Therapy for Suspected Infection< br>Empiric Therapy Site: Blood
D uration of therapy: 72 hours NaCl 0.9% 2020- No 500mL at 999 Univ ers (NS) bolus 09-29 mL/hr, 500 it y of infusion 18:30: 21:35 mL, IV [place] 500 mL 00 :00 Piggyback, Medical ONCE, 1 Branch dose, 09/29/20 at 1330, STAT Immunizations Ordered Filled Immunization Date Status Comments [facility] e Immunization Name Name TIMMY 2021-10-14 Completed University o f 00:00:00 [facility] Zoster Vaccine 2020-07-02 Completed University of Recombinant 00:00:00 [facility] Zoster Vaccine 2020-07-02 Completed University of Recombinant 00:00:00 [facility] Zoster Vaccine 2020-07-02 Completed University of Recombinant 00:00:00 [facility] Zoster Vaccine 2020-07-02 Completed University of Recombinant 00:00:00 [facility] Zoster Vaccine 2020-07-02 Completed University of Recombinant 00:00:00 [facility] Zoster Vaccine 2020-07-02 Completed University of Recombinant 00:00:00 [facility] Zoster Vaccine 2020-07-02 Completed University of Recombinant 00:00:00 [facility] SARS-COV-2 COVID-19 2020-04-19 Completed Unive rsity of MODERNA VACCINE 00:00:00 [facility] SARS-COV-2 COVID-19 2020-04-19 Completed Unive rsity of MODERNA VACCINE 00:00:00 [facility] SARS-COV-2 COVID-19 2020-04-19 Completed Unive rsity of MODERNA VACCINE 00:00:00 [facility] SARS-COV-2 COVID-19 2020-04-19 Completed Unive rsity of MODERNA VACCINE 00:00:00 [facility] SARS-COV-2 COVID-19 2020-04-19 Completed Unive rsity of MODERNA VACCINE 00:00:00 [facility] SARS-COV-2 COVID-19 2020-04-19 Completed Unive rsity of MODERNA VACCINE 00:00:00 [facility] SARS-COV-2 COVID-19 2020-04-19 Completed Unive rsity of MODERNA VACCINE 00:00:00 [facility] Influenza High Dose 2020-01-04 Completed Unive rsity of 00:00:00 [facility] Influenza High Dose 2020-01-04 Completed Unive rsity of 00:00:00 [facility] Influenza High Dose 2020-01-04 Completed Unive rsity of 00:00:00 [facility] Influenza High Dose 2020-01-04 Completed Unive rsity of 00:00:00 [facility] Influenza High Dose 2020-01-04 Completed Unive rsity of 00:00:00 [facility] Influenza High Dose 2020-01-04 Completed Unive rsity of 00:00:00 [facility] Influenza High Dose 2020-01-04 Completed Unive rsity of 00:00:00 [facility] Influenza Virus 2018-12-30 Completed Universit y of Vaccine 00:00:00 [facility] Influenza Virus 2018-12-30 Completed Universit y of Vaccine 00:00:00 [facility] Influenza Virus 2018-12-30 Completed Universit y of Vaccine 00:00:00 [facility] Influenza Virus 2018-12-30 Completed Universit y of Vaccine 00:00:00 [facility] Influenza Virus 2018-12-30 Completed Universit y of Vaccine 00:00:00 [facility] Influenza Virus 2018-12-30 Completed Universit y of Vaccine 00:00:00 [facility] Influenza Virus 2018-12-30 Completed Universit y of Vaccine 00:00:00 [facility] TDAP 2018-12-17 Completed University of 00:00:00 [facility] TDAP 2018-12-17 Completed University of 00:00:00 [facility] TDAP 2018-12-17 Completed University of 00:00:00 [facility] TDAP 2018-12-17 Completed University of 00:00:00 [facility] TDAP 2018-12-17 Completed University of 00:00:00 [facility] TDAP 2018-12-17 Completed University of 00:00:00 [facility] TDAP 2018-12-17 Completed University of 00:00:00 [facility] Influenza High Dose 2017-12-24 Completed Unive rsity of 00:00:00 [facility] Influenza High Dose 2017-12-24 Completed Unive rsity of 00:00:00 [facility] Influenza High Dose 2017-12-24 Completed Unive rsity of 00:00:00 [facility] Influenza High Dose 2017-12-24 Completed Unive rsity of 00:00:00 [facility] Influenza High Dose 2017-12-24 Completed Unive rsity of 00:00:00 [facility] Influenza High Dose 2017-12-24 Completed Unive rsity of 00:00:00 [facility] Influenza High Dose 2017-12-24 Completed Unive rsity of 00:00:00 [facility] Pneumococcal 13 2017-02-11 Completed Universit y of Conjugate, PCV13 00:00:00 [facility] [place] [facility] dical (Prevnar 13) Branch Pneumococcal 13 2017-02-11 Completed Universit y of Conjugate, PCV13 00:00:00 [facility] dical (Prevnar 13) Branch Pneumococcal 13 2017-02-11 Completed Universit y of Conjugate, PCV13 00:00:00 [facility] dical (Prevnar 13) Branch Pneumococcal 13 2017-02-11 Completed Universit y of Conjugate, PCV13 00:00:00 [facility] dical (Prevnar 13) Branch Pneumococcal 13 2017-02-11 Completed Universit y of Conjugate, PCV13 00:00:00 [facility] dical (Prevnar 13) Branch Pneumococcal 13 2017-02-11 Completed Universit y of Conjugate, PCV13 00:00:00 [facility] dical (Prevnar 13) Branch Pneumococcal 13 2017-02-11 Completed Universit y of Conjugate, PCV13 00:00:00 [facility] dical (Prevnar 13) Branch Influenza Virus 2012-05-03 Completed Universit y of Vaccine 00:00:00 [facility] Influenza Virus 2012-05-03 Completed Universit y of Vaccine 00:00:00 [facility] Influenza Virus 2012-05-03 Completed Universit y of Vaccine 00:00:00 [facility] Influenza Virus 2012-05-03 Completed Universit y of Vaccine 00:00:00 [facility] Influenza Virus 2012-05-03 Completed Universit y of Vaccine 00:00:00 [facility] Influenza Virus 2012-05-03 Completed Universit y of Vaccine 00:00:00 [facility] Influenza Virus 2012-05-03 Completed Universit y of Vaccine 00:00:00 [facility] Zoster(Zostavax)( 2008-03-26 Completed Unive rsity of ingles) 00:00:00 [facility] Zoster(Zostavax)( 2008-03-26 Completed Unive rsity of ingles) 00:00:00 [facility] Zoster(Zostavax)( 2008-03-26 Completed Unive rsity of ingles) 00:00:00 [facility] Zoster(Zostavax)( 2008-03-26 Completed Unive rsity of ingles) 00:00:00 [facility] Zoster(Zostavax)( 2008-03-26 Completed Unive rsity of ingles) 00:00:00 [facility] Zoster(Zostavax)( 2008-03-26 Completed Unive rsity of ingles) 00:00:00 [facility] Zoster(Zostavax)( 2008-03-26 Completed Unive rsity of ingles) 00:00:00 [place] [facility] [facility] Influenza Virus 1999-12-16 Completed Universit y of Vaccine - Whole 00:00:00 [facility] Influenza Virus 1999-12-16 Completed Universit y of Vaccine - Whole 00:00:00 [facility] Influenza Virus 1999-12-16 Completed Universit y of Vaccine - Whole 00:00:00 [facility] Influenza Virus 1999-12-16 Completed Universit y of Vaccine - Whole 00:00:00 [facility] Influenza Virus 1999-12-16 Completed Universit y of Vaccine - Whole 00:00:00 [facility] Influenza Virus 1999-12-16 Completed Universit y of Vaccine - Whole 00:00:00 [facility] Influenza Virus 1999-12-16 Completed Universit y of Vaccine - Whole 00:00:00 [facility] Vital Signs Vital Name Observation Time Observation Value Comments Source Systolic blood 2021-10-14 22:34:00 156 mm[Hg] Univer sity of pressure [facility] Diastolic blood 2021-10-14 22:34:00 70 mm[Hg] Unive rsity of pressure [facility] Heart rate 2021-10-14 22:34:00 54 /min [facility] Body temperature 2021-10-14 22:34:00 36.33 Acacia Univ ers[facility] Respiratory rate 2021-10-14 22:34:00 18 /min Univ [facility] Oxygen saturation in 2021-10-14 22:34:00 96 /min University of Arterial blood by [place] [facility] [employer] katelin Pulse oximetry Branch Body height 2021-10-14 21:28:00 190.5 cm [facility] Body weight 2021-10-14 21:28:00 113.399 kg [facility] BMI 2021-10-14 21:28:00 31.25 kg/m2 [facility] [place] [facility] Systolic blood 2021-10-13 22:34:00 148 mm[Hg] Univer sity of pressure [facility] Diastolic blood 2021-10-13 22:34:00 81 mm[Hg] Unive rsity of pressure [facility] Heart rate 2021-10-13 22:31:00 61 /min [facility] Body temperature 2021-10-13 22:31:00 37 [place] [facility] Respiratory rate 2021-10-13 22:31:00 16 /min [facility] Body weight 2021-10-13 22:31:00 106.595 kg [facility] BMI 2021-10-13 22:31:00 29.37 kg/m2 [facility] Oxygen saturation in 2021-10-13 22:31:00 96 /min University of Arterial blood by [place] [facility] [employer] [facility] Pulse oximetry Branch Systolic blood 2021-06-14 18:39:00 153 mm[Hg] Univer sity of pressure [facility] Diastolic blood 2021-06-14 18:39:00 81 mm[Hg] Unive rsity of pressure [facility] Heart rate 2021-06-14 18:39:00 59 /min [facility] [place] [facility] Body temperature 2021-06-14 18:39:00 36.44 [place] [facility] [place] [facility] Respiratory rate 2021-06-14 18:39:00 16 /min [facility] Body height 2021-06-14 18:39:00 [facility] Body weight 2021-06-14 18:39:[address] [facility] BMI 2021-06-14 18:39:00 30.00 kg/m2 [facility] Oxygen saturation in 2021-06-14 18:39:00 96 /min University of Arterial blood by [facility] Pulse oximetry Branch Systolic blood 2020-10-02 16:46:00 142 mm[Hg] Univer sity of pressure [facility] Diastolic blood 2020-10-02 16:46:00 71 mm[Hg] Unive [facility] [place] Heart rate 2020-10-02 16:46:00 60 /min [facility] Body temperature 2020-10-02 16:45:00 35.67 [place] [facility] Respiratory rate 2020-10-02 16:45:00 22 /min [facility] Oxygen saturation in 2020-10-02 16:45:00 96 /min [place] of Arterial blood by [facility] Pulse oximetry Branch Body height 2020-09-30 04:45:[address] [facility] Body weight 2020-09-30 04:45:[address] [facility] BMI 2020-09-30 04:45:00 29.62 kg/m2 [facility] Procedures Procedure Date / Time Performing Clinician Source Performed POCT SARS-COV-2 ANTIGEN 2021-10-13 22:32:00 Luis Felipe [facility] (BINAX NOW) [facility] CONSENT/REFUSAL FOR 2021-10-13 22:22:33 Doctor Unassigned, Unive [facility] DIAGNOSIS AND TREATMENT [facility] ASSIGNMENT OF BENEFITS 2021-10-13 22:22:18 Doctor Unassigned, Un [facility] DIRECTIVE TO PHYSICIAN 2020-10-11 05:01:00 Doctor Unassigned, Un [facility] [place] [facility] BLOOD CULTURE SCREEN 2020-10-02 00:48:00 Tolu Garcia [facility] BLOOD CULTURE SCREEN 2020-10-01 22:16:00 Angi Page [facility] Malena [facility] MAGNESIUM 2020-10-01 06:57:00 [facility] BASIC METABOLIC PANEL 2020-10-01 06:57:00 [facility] (NA, K, CL, CO2, GLUCOSE, Medica l Branch BUN, CREATININE, CA) CBC WITH DIFF 2020-10-01 06:57:00 [facility] LACTIC ACID WHOLE BLOOD 2020-09-30 09:00:00 Molly [facility] BASIC METABOLIC PANEL 2020-09-30 08:33:00 Molly [facility] (NA, K, CL, CO2, GLUCOSE, Medica l Branch BUN, CREATININE, CA) CBC WITHOUT DIFF 2020-09-30 08:33:00 Molly [facility] PROCALCITONIN 2020-09-30 08:33:[address] [facility] MRSA / MSSA SCREEN BY 2020-09-30 04:14:00 Barnes [facility] CRITICAL CARE 2020-09-29 21:50:[address] [facility] URINE DRUG (IMMUNOASSAY) 2020-09-29 20:27:00 Antonio Davey [facility] SCREEN CT ABDOMEN PELVIS W 2020-09-29 20:05:40 [facility] CONTRAST [facility] Branch XR CHEST 1 VW 2020-09-29 18:43:[address] [facility] POCT GLUCOSE (AUTOMATED) 2020-09-29 18:42:00 Antonio Davey [facility] CT HEAD WO CONTRAST 2020-09-29 17:54:[address] [facility] BLOOD CULTURE SCREEN 2020-09-29 17:38:00 Antonio Davey [facility] LIPASE 2020-09-29 17:38:[address] [facility] AMMONIA, PLASMA 2020-09-29 17:38:[address] [facility] TROPONIN I 2020-09-29 17:38:[address] [facility] FREE T4 2020-09-29 17:38:[address] [facility] THYROID STIMULATING 2020-09-29 17:38:00 [facility] HORMONE [facility] Branch COMP. METABOLIC PANEL 2020-09-29 17:38:00 Antonio Davey [facility] ([id number]) Medical Branch ETHANOL 2020-09-29 17:38:[address] [facility] CBC WITH DIFF 2020-09-29 17:38:[address] [facility] PROTHROMBIN TIME / INR 2020-09-29 17:38:00 Antonio Davey [facility] ACTIVATED PARTIAL 2020-09-29 17:38:00 Antonio Davey [facility] THRMPLAS SANDY [facility] URINALYSIS 2020-09-29 17:38:[address] [facility] URINE CULTURE 2020-09-29 17:38:[address] [facility] N-TERMINAL PRO-BNP 2020-09-29 17:38:[address] [facility] BLOOD CULTURE WORKUP 2020-09-29 17:38:00 Antonio Davey [facility] ADC, CLC OR LCC ONLY - 2020-09-29 17:38:00 [facility] RSV [facility] AC PANEL 21 + LACTIC ACID 2020-09-29 17:38:00 [facility] POS[facility]LOOD 2020-09-29 17:38:00 [facility] PATHOGENS DNA [facility] PROBE-ANAEROBIC COVID-19 (ID NOW RAPID 2020-09-29 17:38:00 [facility] TESTING) Medical Branch LAB ONLY COVID 2020-09-29 17:38:00 Antonio Davey [facility] INTERPRETATION [facility] NOTICE OF PRIVACY 2020-09-29 17:17:05 Doctor Unassigned, [facility] PRACTICES [facility] CONSENT/REFUSAL FOR 2020-09-29 17:16:39 Doctor Mahoganysssofia [facility] DIAGNOSIS AND TREATMENT [facility] AUTHORIZATION FOR RELEASE 2019-08-05 05:01:00 Doctor Diya, [facility] Encounters Start End Encounter Admission Attending Care Care Encounter Source Date/Time Date/Time Type Type Clinicians Facility Department ID 2021-10-14 2021-10-14 Nurse Therapy, Adc Covid Infusion [facility] [id number] Univers 16:00:00 17:00:00 Visit Jayda Harden [id number] ity [place] [id number] [place] [id number] Branch 2021-10-14 2021-10-14 Outpatient R KRISH [facility] [id number] Univers 16:00:00 16:00:00 JAYDA north [facility] 2021-10-13 2021-10-13 [address] [facility] 1..840.114 [id number] Univers 17:40:00 18:00:00 Yolis Green [facility] [id number] ity of [place] 4.2.7.2.686 Taj as GEORGIE?BLEA [id number] [address] MEDICAL OFFICE BUILDING 2021-10-13 2021-10-13 Outpatient William GREEN [facility] [id number] Univers 17:40:00 17:59:04 LUIS FELIPE north [facility] 2021-10-13 2021-10-13 Orders Doctor RIVERA 1..840.114 [id number] Univers 00:00:00 00:00:00 Only UnassignedJOSE CRUZ 350.1.13.10 ity of [place] [facility] 4.2.7.2.686 Taj as [id number] [address] 2021-06-14 2021-06-14 Urgent Bulmaro Chagomary [facility] 1.2 .840.114 [id number] Univers 14:00:00 14:00:00 Yolis Green Luis Felipe HEALTH [id number] ity of [place] 4.2.7.2.686 Taj as GEORGIE?BLEA [id number] Mn candis MARIBEL [address] [place] [address] MEDICAL OFFICE BUILDING 2021-06-14 2021-06-14 Outpatient R PETER [facility] [id number] Univers 14:00:00 13:56:12 LUIS FELIPE north [facility] 2020-10-11 2020-10-11 Orders Doctor RIVREA 1.2.840.114 [id number] Univers 00:00:00 00:00:00 Only Unassigned, JOSE CRUZ 350.1.13.10 ity of [place] [facility] 4.2.7.2.686 Taj as [id number] [facility] 009 Branch 2020-10-03 2020-10-03 Transition Nav Gordon 1.2.840.114 [id number] Univers 00:00:00 00:00:00 of Care Jaycee Tomy 350.1.13.10 [place] [id number] [facility] 403 Branch 2020-09-29 2020-10-02 Hospital Antonio Davey 1.2.840.1 14 [id number] Univers 12:19:00 14:50:00 Encounter Mark Anthony Ghotra 350.1.13. 10 ity of [place], [facility] 4.2.7.2.686 [place] Concha Azul [id number] [address] 2020-09-29 2020-09-29 Emergency X [facility] ERT [id number] Univers 12:14:00 12:14:00 ANTONIO north [facility] 2019-08-05 2019-08-05 Orders Doctor RIVERA 1.2.840.114 [id number] 00:00:00 00:00:00 Only Unassigned, JOSE CRUZ 350.1.13.10 [facility] 4.2.7.2.686 [id number] 009 2019-08-05 2019-08-05 Orders Doctor RIVERA 1.2.840.114 [id number] Univers 00:00:00 00:00:00 Only Unassigned, JOSE CRUZ 350.1.13.10 ity of [place] [facility] 4.2.7.2.686 Taj as [phone] [address] 2019-07-09 2019-07-09 Emergency X JOE, [facility] ERT [id number] Univers 10:36:38 13:39:00 ANTONIO north [facility] Results Test Description Test Time Test Comments Results Result Comments Source POCT SARS-COV-2 ANTIGEN (BINAX NOW) 2021-10-13 22:47:00 Test Item Value Reference Range Interpretation Comme nts POCT SARS-COV-2 ANTIGEN (test code = 5076) Positive Not Detecte d A On board controls acceptable with C Line (test code = 3574) Yes Lab Interpretation (test code = 20052-5) Abnormal [facility] - Peripheral # [id number] 14:27:04 Test Item Value Reference Range Interpretation Comments Blood Culture-Aerobic No organisms No growth Previo us (test code = 10967-2) isolated prelim inary verified result was Culture In Progress on 09/29/2020 at 17 01 CDTPrevious preliminary verified result was No growth a t 24 hours on 09/30/2020 at 14 15 CDT Blood Culture positive. No growth AA Previous Culture-Anaerobic See Blood Culture preli minary (test code = 88776-3) Workup for verifi ed result additional was Culture In information. Progress on 09/29/2020 at 17 01 CDTPrevious preliminary verified result was No growth a t 24 hours on 09/30/2020 at 14 01 CDT Lab Interpretation Abnormal (test code = 55134-6) [facility] [id number] 14:26:54 Test Item Value Reference Range Interpretation Comments Blood Culture Coagulase negative Organism identified Workup (test Staphylococcus by DNA code = 600-7) probeAdditiona l work-up perform ed only per reques t. Culture plate(s ) will be saved until this date: - 10/07/20 Gram stain Gram positive cocci Anaerobi c Bottle (test code = 664-3) [facility]OL[facility] (NA, K, CL, CO2, GLUCOSE, BUN, CREATININE, CA)2020-10-01 07:27:37 Test Item Value Reference Range Interpretation Comments NA (test code = 135 mmol/L 135-145 5187281965) K (test code = 3.7 mmol/L 3.5-5.0 5548058368) CL (test code = 108 mmol/L 98-108 8564386103) CO2 TOTAL (test code = 23 mmol/L 23-31 6033798228) AGAP (test code = 2-16 9260678311) BUN (test code = 16 mg/dL 7-23 7069694070) GLUCOSE (test code = 103 mg/dL 70-110 6760890764) CREATININE (test code = 0.51 mg/dL 0.60-1.25 L 3120337601) CALCIUM (test code = 8.4 mg/dL 8.6-10.6 L 2713026853) eGFR (test code = mL/min/1.73m2 4809609972) JEAN MARIE (test code = JEAN MARIE) Association of Glomerular Filtration Rate (GFR) and Staging of Kidney Disease* + --+ --+ ------+| GFR (mL/min/1.73 m2) ?| With Kidney Damage ?| ?Without Kidney Damage+ --------+ --------+ +| ?>90 ?| ?Stage one ?| ? Normal ?+ ---+ ---+ -------+| ?60-89 ?| ?Stage two ?| ? Decreased GFR ? + --+ --+ ------+| ?30-59 ?| ?Stage three ?| ? Stage three ? + --+ --+ ------+| ?15-29 ?| ?Stage four ? | ? Stage four ?+ ---+ ---+ -------+| ?<15 (or dialysis) ? ?| ?Stage five ? | ? Stage five ?+ ---+ ---+ -------+ *Each stage assumes the associated GFR level has been in effect for at least three months. ?Stages 1 to 5, with or without kidney disease, indicate chronic kidney disease. Notes: Determination of stages one and two (with eGFR >59mL/min/1.73 m2) requires estimation of kidney damage for at least three months as defined by structural or functional abnormalities of the kidney, manifested by either:Pathological abnormalities or Markers of kidney damage (including abnormalities in the composition of the blood or urine or abnormalities in imaging tests). Lab Interpretation Abnormal (test code = 77698-3) [facility]37 Test Item Value Reference Range Interpretation Comments MAGNESIUM (test code = 7875675679) 2.0 mg/dL 1.7-2.4 Lab Interpretation (test code = Normal 12875-4) [facility] WITH [id number] 07:05:54 Test Item Value Reference Range Interpretation Comments WBC (test code = See_Comment H [Automated 6690-2) message] The system which generated this result transmit donn reference range : 4.20 - 10.70 10*3/?L. The reference range was not used to interpret this result as normal/abnormal . RBC (test code = See_Comment L [Automated 789-8) message] The system which generated this result transmit donn reference range : 4.26 - 5.52 10*6/?L. The reference range was not used to interpret this result as normal/abnormal . HGB (test code = 12.0 g/dL 12.2-16.4 L 718-7) HCT (test code = 35.7 % 38.4-49.3 L 4544-3) MCV (test code = 92.0 fL 81.7-95.6 787-2) MCH (test code = 30.9 pg 26.1-32.7 785-6) MCHC (test code = 33.6 g/dL 31.2-35.0 786-4) RDW-SD (test code = 45.0 fL 38.5-51.6 39104-8) RDW-CV (test code = 13.3 % 12.1-15.4 788-0) PLT (test code = See_Comment [Automated 777-3) message] The system which generated this result transmit donn reference range : 150 - 328 10*3/ ?L. The reference range was not u sed to interpret th is result as normal/abnormal . MPV (test code = 10.4 fL 9.8-13.0 32292-4) NRBC/100 WBC (test See_Comment [Automat ed code = 4193755975) message] The system which generated this result transmit donn reference range : 0.0 - 10.0 /100 WBCs. The reference range was not used to interpret this result as normal/abnormal . NRBC x10^3 (test code <0.01 See_Comment [Auto mated = 2624319833) message] The system which generated this result transmit donn reference range : 10*3/?L. The reference range was not used to interpret this result as normal/abnormal . GRAN MAT (NEUT) % 83.1 % (test code = 770-8) IMM GRAN % (test code 0.60 % = 2954409910) LYMPH % (test code = 9.0 % 736-9) MONO % (test code = 6.7 % 5905-5) EOS % (test code = 0.3 % 713-8) BASO % (test code = 0.3 % 706-2) GRAN MAT x10^3(ANC) 10.41 10*3/uL 1.99-6.95 H (test code = 3892413971) IMM GRAN x10^3 (test 0.07 10*3/uL 0.00-0.06 H code = 3102026272) LYMPH x10^3 (test code 1.13 10*3/uL 1.09-3.23 = 731-0) MONO x10^3 (test code 0.84 10*3/uL 0.36-1.02 = 742-7) EOS x10^3 (test code = 0.04 10*3/uL 0.06-0.53 L 711-2) BASO x10^3 (test code 0.04 10*3/uL 0.01-0.09 = 704-7) Lab Interpretation Abnormal (test code = 30740-7) [facility] PATHOGENS DNA [id number] 02:15:10 Test Item Value Reference Range Interpretation Comments Coagulase Negative Positive Negative, See A Staphylococcus (test Comment/Narrative code = 83988-8) JEAN MARIE (test code = JEAN MARIE) Coagulase negative Staphylococcus (CoNS) detected by DNA probe. ?CoNS often contaminate blood cultures from skin colonization during phlebotomy. ?Preferred management is to repeat blood cultures, and monitor off antibiotics. ?Contamination is suggested by culture growth after 48 hours, or growth in single culture (i.e., one of two sets). ?True bacteremia is suggested by the fever, hypotension, and leukocytosis that are not explained by an alternative infection, or indwelling foreign devices that appear infected (catheters, lines, or prostheses). Consider Infectious Diseases consultation if differentiation of CoNS bacteremia from contamination is uncertain. If clinical context suggests true bacteremia, preferred therapy is vancomycin. Please contact the Antimicrobial Stewardship Program with questions.Pager: ?[phone] Testing included eleven identification and three resistance marker targets. Lab Interpretation Abnormal (test code = 91032-2) [facility] / MSSA Screen by PCR, [id number] 19:07:08 Test Item Value Reference Range Interpretation Comments MSSA Screen by PCR, Nares (test code Negative Negative = 46281-6) MRSA/MSSA Positive? (test code = No No [id number]) Lab Interpretation (test code = Normal 88067-2) [facility] COVID [id number] 15:40:48COVID DMT InterpretationInterpretation/Recommendations:Molecular NAAT Tests for Active Infection with the SARS-CoV-2 Virus:The patient has currently tested negative for the SARS-CoV-2 virus that causesCOVID-19 illness. This most likely indicates that the patient does not have an active infection withthe SARS-CoV-2 virus. However, infection is not completely ruled out as the false negative rate for molecular NAAT testing using a nasopharyngeal sample can be up to 30%, mostly dependent on the timingof sample collection in relation to illness onset and any deficiencies in sampling techniques. If the patient has symptoms concerning for COVID-19 illness, a repeat NAAT test (PCR, Rapid ID Now, etc.) should be performed, at which time the SARS-CoV-2 virus - if present - may have reached a detectable viral load (usually peaking by the end of the first week of symptoms). Tests for IgM and/or IgG Antibodies to the SARS-CoV-2 Virus:If the patient develops COVID-19 illness in the future, testing for IgMand IgG antibodies approximately 3 weeks after illness onset will likely indicate if the patient hasproduced antibodies to the SARS-CoV-2 virus. However, some patients may take longer to develop detectable antibodies, while some patients who were infected with SARS-CoV-2 may never develop antibodies.While antibodies to SARS-CoV-2 may provide some degree of immunity, at this time the strength and duration of the antibody response is unknown. Interpretation Result Comments:These interpretation comments are based upon all COVID-19 testing the patient has had at [facility], including molecular NAAT testing (more commonly known as PCRtesting and Rapid ID Now testing) and antibody testing. It does not take into account any testing that a patient has had outside of the [facility] medical record. [facility] LABORATORY SERVICESCOVID [id number]-HgZ-1 Rapid ID NOW (no units) ? ? Date ? Value ? 09/29/2020 ?Not Detected ? [facility] LABORATORY SERVICESUnChildren[facility]anoPROCALCITONIN2021-07-19 10:18:36 Test Item Value Reference Range Interpretation Comments Procalcitonin (test 5.32 ng/mL <0.07 H code = 6761268187) JEAN MARIE (test code = JEAN MARIE) INTERPRETATION OF PROCALCITONIN RESULTS IN ADULTS >= 18 YEARS OF AGE Initiation and discontinuation of antibiotics on patients with suspected or confirmed Lower Respiratory Tract Infection in Adults >= 18 years of age. + +-------- --------+ + -----+|Procalcitonin |Interpretation ?|Antibiotic ? ? |Considerations ? |ng/mL ? | ?|recommendation | ? + +-------- --------+ + -----+| <0.1 ? | Bacterial ? ? ?| Strongly ? ? ?| ? | ?| infection very | discouraged ? | Overruling: ? | ?| unlikely ? ? ? | ? | ? Clinically unstable ? ? ? + +-------- --------+ + ? High risk for adverse ? ? | <0.25 ?| Bacterial ? ? ?| Discouraged ? | ? outcome ? | ?| infection ? ? ?| ? | ? SEE IMPORTANT NOTE ?| ?| unlikely ? ? ? | ? | ? + +-------- --------+ + -----+| >=0.25 ? ? ? | Bacterial ? ? ?| Encouraged ? ?| ? | ?| infection ? ? ?| ? | ? | ?| likely ? | ? | Consider treatment failure ?+ +------- ---------+ -+ if levels does not decrease | >0.5 ? | Bacterial ? ? ?| Strongly ? ? ?| appropriately ? | ?| infection very | encouraged ? ?| ? | ?| likely ? | ? | ? + +-------- --------+ + -----+ Discontinuation of antibiotics in high-acuity patients with suspected or confirmed sepsis in Adults >= 18 years of age. + +-------- --------+ + -----+|Procalcitonin |Interpretation ?|Antibiotic ? ? |Considerations ? |ng/mL ? | ?|recommendation | ? + +-------- --------+ + -----+| <0.25 ?| Bacterial ? ? ?| Strongly ? ? ?| ? | ?| infection very | discouraged ? | Overruling: ? | ?| unlikely ? ? ? | ? | ? Clinically unstable ? ? ? + +-------- --------+ + ? High risk for adverse ? ? | <0.5 or drop | Bacterial ? ? ?| Discouraged ? | ? outcome ? | >80% from ? ?| infection ? ? ?| ? | ? SEE IMPORTANT NOTE ?| highest PCT ?| unlikely ? ? ? | ? | ? | level ?| ?| ? | ? + +-------- --------+ + -----+| >=0.5 ?| Bacterial ? ? ?| Encouraged ? ?| ? | ?| infection ? ? ?| ? | ? | ?| likely ? | ? | Consider treatment failure ?+ +------- ---------+ -+ if levels does not decrease | >1.0 ? | Bacterial ? ? ?| Strongly ? ? ?| appropriately ? | ?| infection very | encouraged ? ?| ? | ?| likely ? | ? | ? + +-------- --------+ + -----+ Percentage of drop of Procalcitonin calculation for Discontinuation of antibiotics in high-acuity patients with suspected or confirmed sepsis in Adults >= 18 years of age. ? Procalcitonin highest{}-Procalcitonin current{}Delta Procalcitonin = x100% ? Procalcitonin current {} IMPORTANT NOTE: Procalcitonin may be elevated without bacterial infection by physiologic stress related to trauma, de la cruz, chronic dialysis, metastatic cancer, surgery in the past seven days, malaria, some fungal infections, and some forms of vasculitis. The interpretation algorithm may not apply to patients with immunosuppression (equivalent of >10 mg of prednisone daily), HIV with CD4 cell count < 350 cells/mm3, active malignancy on systemic chemotherapy, solid organ transplant or hematopoietic stem cell transplantation, or hospital acquired pneumonia. Additionally, some clinical trials of procalcitonin have excluded patients with shock requiring vasopressor use, acute respiratory failure requiring mechanical ventilation, or those with known lung abscess/empyema. For further information please refer to:[email or web address] Lab Interpretation Abnormal (test code = 76879-8) [facility] (NA, K, CL, CO2, GLUCOSE, BUN, CREATININE, CA)2020-09-30 09:33:51 Test Item Value Reference Range Interpretation Comments NA (test code = 137 mmol/L 135-145 7486508932) K (test code = 3.3 mmol/L 3.5-5.0 L 9814283730) CL (test code = 110 mmol/L 98-108 H 8472155476) CO2 TOTAL (test code = 24 mmol/L 23-31 8949740937) AGAP (test code = 2-16 3994332262) BUN (test code = 18 mg/dL 7-23 0111494750) GLUCOSE (test code = 100 mg/dL 70-110 0171924241) CREATININE (test code = 0.52 mg/dL 0.60-1.25 L 9702395544) CALCIUM (test code = 8.3 mg/dL 8.6-10.6 L 7838342978) eGFR (test code = mL/min/1.73m2 0328915029) JEAN MARIE (test code = JEAN MARIE) Association of Glomerular Filtration Rate (GFR) and Staging of Kidney Disease* + --+ --+ ------+| GFR (mL/min/1.73 m2) ?| With Kidney Damage ?| ?Without Kidney Damage+ --------+ --------+ +| ?>90 ?| ?Stage one ?| ? Normal ?+ ---+ ---+ -------+| ?60-89 ?| ?Stage two ?| ? Decreased GFR ? + --+ --+ ------+| ?30-59 ?| ?Stage three ?| ? Stage three ? + --+ --+ ------+| ?15-29 ?| ?Stage four ? | ? Stage four ?+ ---+ ---+ -------+| ?<15 (or dialysis) ? ?| ?Stage five ? | ? Stage five ?+ ---+ ---+ -------+ *Each stage assumes the associated GFR level has been in effect for at least three months. ?Stages 1 to 5, with or without kidney disease, indicate chronic kidney disease. Notes: Determination of stages one and two (with eGFR >59mL/min/1.73 m2) requires estimation of kidney damage for at least three months as defined by structural or functional abnormalities of the kidney, manifested by either:Pathological abnormalities or Markers of kidney damage (including abnormalities in the composition of the blood or urine or abnormalities in imaging tests). Lab Interpretation Abnormal (test code = 81000-2) [facility] WITHOUT [id number] 09:10:31 Test Item Value Reference Range Interpretation Comments WBC (test code = 6690-2) See_Comment H [A utomated message] The system [email or web address] generated this result transmit donn reference range : 4.20 - 10.70 10*3/?L. The reference range was not used to interpret this result as normal/abnormal . RBC (test code = 789-8) See_Comment L [Au tomated message] The system [email or web address] generated this result transmit donn reference range : 4.26 - 5.52 10* 6/?L. The reference r branden was not used to interpret this result as normal/abnormal . HGB (test code = 718-7) 11.4 g/dL 12.2-16.4 L HCT (test code = 4544-3) 34.4 % 38.4-49.3 L MCH (test code = 785-6) 30.5 pg 26.1-32.7 MCV (test code = 787-2) 92.0 fL 81.7-95.6 MCHC (test code = 786-4) 33.1 g/dL 31.2-35.0 PLT (test code = 777-3) See_Comment [Au tomated message] The system [email or web address] generated this result transmit donn reference range : 150 - 328 10*3/?L. The reference range was not used to interpret this result as normal/abnormal . MPV (test code = 10.3 fL 9.8-13.0 69708-1) RDW-CV (test code = 13.5 % 12.1-15.4 788-0) RDW-SD (test code = 45.3 fL 38.5-51.6 73111-2) NRBC x10^3 (test code = <0.01 See_Comment [Au tomated message] 3839750251) The system [email or web address] generated this result transmit donn reference range : 10*3/?L. The reference range was not used to interpret this result as normal/abnormal . NRBC/100 WBC (test code See_Comment [Au tomated message] = 5080766398) The system [facility] generated this result transmit donn reference range : 0.0 - 10.0 /100 WBC s. The reference r branden was not used to interpret this result as normal/abnormal . IPF % (test code = 5609433531) Lab Interpretation (test Abnormal code = 27464-2) [facility]ressLactic Acid Whole [id number] 09:06:02 Test Item Value Reference Range Interpretation Comments LACTIC ACID (test code = 1.66 mmol/L 0.50-2.20 2776948810) Lab Interpretation (test code = Normal 47363-9) [facility]ressCritical [id number] 21:50:06Antonio Davey MD ? ? 09/29/2020 ?4:50 PMCritical CarePerformed by: Antonio Davey MDAuthorized by: Antonio Davey MD Critical care provider statement: ?Critical care time (minutes): ?90 ?Criticalcare was necessary to treat or prevent imminent or life-threatening deterioration of the following conditions: ?Shock and sepsis ?Critical care was time spent personally by me on the following activities: ?Ordering and performing treatments and interventions, ordering and review of laboratory studies,ordering and review of radiographic studies, pulse oximetry, re-evaluation of patient's condition, discussions with consultants, discussions with primary provider, evaluation of patient's response to tr eatment, examination of patient and development of treatment plan with patient or surrogateUnChildren's Medical Center PlanoURINE DRUG (IMMUNOASSAY) - COMPREHENSIVE DRUG [id number] 21:20:09 Test Item Value Reference Range Interpretation Comments AMPHET (test code = Negative Negative 1068271115) TED U (test code = Negative Negative 4685421449) BENZO U (test code = Negative Negative 4958929050) Cocaine Metabolite (test Negative Negative code = 3876255519) METHADONE (test code = Negative Negative 6117863890) OPIATES (test code = Negative Negative 3682761887) PCP (test code = Negative Negative 1875894116) THC (test code = Negative Negative 1959337543) JEAN MARIE (test code = JEAN MARIE) Urine Drug Cutoff Ranges Cocaine: ? 150 ng/mLBenzodiazepines: ? ? 200 ng/mLMethadone: ? 300 ng/mLAmphetamine: ? 1,000 ng/mLOpiates: ? 300 ng/mLCannabinoids: ?50 ng/mLPhencyclidine: ? ? ? 25 ng/mLBarbiturates: ?200 ng/mL The results are to be used only for medical (i.e., treatment) purposes. Unconfirmed screening results must not be used for non-medical purposes (e.g., employment testing, legal testing). Lab Interpretation (test Normal code = 92129-2) [facility]ressCT ABDOMEN PELVIS W [id number] 20:45:55 1. Small, mildly complex cyst suggested in the hepatic dome measuring 1.9 x1.8 cm. 2. Multiple right renal cysts. No hydronephrosis 3. Colonic diverticulosis without evidence of acute diverticulitis. 4. Abdominal aortic aneurysm measuring up to 3 cm in diameter 5. Left inguinal hernia containing a nonobstructed loop of sigmoid colon. 6. Right inguinal hernia is present containing fat and a tiny amount offluid. 7. Thickening of the right side of the bladder wall is noted. The rightside of the bladder appears partially retracted towards the right internalhernia. The right side of the bladder may possibly extend into the rightinguinal hernia depending upon its degree of distention. The bladder maypossibly be herniating in and out of the right inguinal hernia sac.Neurological follow-up may be helpful in order to exclude possible bladdermass 8. Prostate gland enlargement RL: 2601 [id number] WITH INTRAVENOUS CONTRAST.CLINICAL INDICATIONS: ? Abdominal abscess/infection suspected Ordering Physician: ; ANTONIO DAVEY TECHNIQUE: ?Axial computed tomographic images of the abdomen and pelviswere performed after administration of nonionic intravenous contrast. TheCT Imaging data was obtained utilizing radiation dose parameters inaccordance with ALARA (As Low As Reasonably Achievable) Quality of Study: Good - Diagnostic COMPARISON: ?None. FINDINGS: ?There is a left inguinal hernia containing a loop of sigmoidcolon. The sigmoid colon does not appear obstructed at this time. A rightinguinal hernia is present containing fat as well as a tiny amount offluid. Mild distention of the urinary bladder. There is mild thickening of theright side of the bladder wall which appears tented towards the rightinguinal hernia. The rightside of the bladder lumen may possibly beprotruding into and out of the right inguinal hernia depending upon itsdegree of distention. Mild enlargement of the prostate gland. Trace amount of free fluid in the pelvis. There is colonic diverticulosis without evidence of acute diverticulitis. Aventricular-peritoneal shunt catheter tubing terminates within the leftlower quadrant. Mild to moderate stool within the colon. No evidence ofmechanical bowel obstruction. No small bowel obstruction. No freeintraperitoneal gas. There is calcific atherosclerosis in the wall of the abdominal aortaextending into theiliac arteries. The infrarenal aorta is mildly and thereis normal measuring up to 3 cm. The adrenal glands appear normal. The left kidney appear normal. A small cyst noted along the posterior right renal lower pole and anteriorright renal mid zone. 2 no glands appear normal. Spleen is normal in size.Small amount of gas and fluid in the stomach. The duodenum and pancreasappear normal. The gallbladder is mildly distended. There is a low-densitylesion in the hepatic dome most compatible with a cyst. This cyst appearsmildly lobulated and may contain a few internal septations. There is acalcified granuloma in the right lower lobe. There is subsegmentalatelectasis at the lung bases. Multilevel degenerative changes noted within the spine. No compressionfracture. No suspicious lytic or blastic lesions identified.. There may be2 small hemangiomas within the L4 and L5 vertebral bodies, respectively. Memb,Radiant Results Inft User - 09/29/2020 3:47 PM CDT ABDOMEN AND PELVIS CT WITH INTRAVENOUS CONTRAST.CLINICAL INDICATIONS: Abdominal abscess/inf ection suspected Ordering Physician: ; ANTONIO STUART: Axial computed tomographic images ofthe abdomen and pelviswere performed after administration of nonionic intravenous contrast. TheCT Imaging data was obtained utilizing radiation dose parameters inaccordance with ALARA (As Low As Reasonably Achievable)Quality of Study: Good - DiagnosticCOMPARISON: None.FINDINGS: There is a left inguinal hernia containing a loop of sigmoidcolon. The sigmoid colon does not appear obstructed at this time. A rightinguinal hernia is present containing fat as well as a tiny amount offluid.Mild distention of the urinary bladder. There is mild thickening of theright side of the bladder wall which appears tented towards the rightinguinal hernia. The right side of the bladder lumen may possibly beprotruding into and out of the right inguinal hernia depending upon itsdegree of distention.Mild enlargement of the prostate gland.Trace amount of free fluid in the pelvis.There is colonic diverticulosis without evidence of acute diverticulitis. Aventricular-peritoneal shunt catheter tubing terminates within the leftlower quadrant. Mild to moderate stool within the colon. No evidence ofmechanical bowel obstruction. No small bowel obstruction. No freeintraperitoneal gas.There is calcific atherosclerosis in the wall of the abdominal aortaextending into the iliac arteries. The infrarenal aorta is mildly and thereis normal measuring up to 3 cm.The adrenal glands appear normal. The left kidney appear normal.A small cyst noted along the posterior right renal lower pole and anteriorright renal mid zone. 2 no glands appear normal. Spleen is normal in size.Small amount of gas and fluid in the stomach. The duodenum and pancreasappear normal. The gallbladder is mildly distended. There is a low-densitylesion in the hepatic dome most compatible with a cyst. This cyst appearsmildly lobulated and may contain a few internal septations. There is acalcified granuloma in the right lower lobe. There is subsegmentalatelectasis at the lung bases.Multilevel degenerative changes noted within the spine. No compressionfracture. No suspicious lytic or blastic lesions identified.. There may be2 small hemangiomas within the L4 andL5 vertebral bodies, respectively.IMPRESSION1. Small, mildly complex cyst suggested in the hepatic dome measuring 1.9 x1.8 cm.2. Multiple right renal cysts. No hydronephrosis3. Colonic diverticulosis without evidence of acute diverticulitis.4. Abdominal aortic aneurysm measuring up to 3 cm in diameter5. Left inguinal hernia containing a nonobstructed loop of sigmoid colon.6. Right inguinal hernia is present containing fat and a tiny amount offluid.7. Thickening of the right side of the bladder wall is noted. The rightside of the bladder appears partially retracted towards the right internalhernia. The right side of the bladder may possibly extend into the rightinguinal hernia depending upon its degree of distention. The bladder maypossibly be herniating in and out of the right inguinal hernia sac.Neurological follow-up may be helpful in order to exclude possible bladdermass8. Prostate gland enlargementRL: [id number] signed by Kevan Mary MD at 09/29/2020 3:45 PM [facility]ressXR CHEST 1 [id number] 19:20:37 Heart size is upper limits of normal. Calcific atheromatous changes in theaortic arch. Multiple external monitoring leads overlie the patient. Ventricular-peritoneal tubing overlies the right side of the neck andchest. No pneumothorax, pulmonary edema or pleural effusion. There are ill-defined, interstitial and groundglass opacities noted in themid and lower lung zones which may represent regions of early or atypicalpneumonia. RL: 2601 [id number] Chest, one view History: ?pneumonia Ordering Physician: Chai DAVEY Comparison: None [facility], Radiant Results Inft User - 09/29/2020 2:21 PM CDTFormatting of this note might be different fromthe original.Chest, one viewHistory: pneumonia Ordering Physician: Chai DAEVYComparison: NoneIMPRESSIONHeart size is upper limits of normal. Calcific atheromatous changes in theaortic arch. Multiple external monitoring leads overlie the patient.Ventricular-peritoneal tubing overlies the right side of the neck andchest.No pneumothorax, pulmonary edema or pleural effusion.There are ill-defined, interstitial and groundglass opacities noted in themid and lower lung zones which may represent regions of early or atypicalpneumonia.RL: [id number] signed by Kevan Mary MD at 09/29/2020 2:20 PM [facility]ressCOMP. METABOLIC PANEL (53616)2020-09-29 19:13:44 Test Item Value Reference Range Interpretation Comments NA (test code = 139 mmol/L 135-145 3632251118) K (test code = 3.9 mmol/L 3.5-5.0 2759430391) CL (test code = 107 mmol/L 98-108 3122386353) CO2 TOTAL (test code = 22 mmol/L 23-31 L 6797096706) AGAP (test code = 2-16 6556197646) BUN (test code = 22 mg/dL 7-23 5134451212) GLUCOSE (test code = 128 mg/dL 70-110 H 9520255823) CREATININE (test code = 0.70 mg/dL 0.60-1.25 2804234457) TOTAL BILI (test code = 0.8 mg/dL 0.1-1.9 5694276907) CALCIUM (test code = 9.6 mg/dL 8.6-10.6 0490324751) T PROTEIN (test code = 6.5 g/dL 6.3-8.2 7745941608) ALBUMIN (test code = 3.7 g/dL 3.5-5.0 5456056482) ALK PHOS (test code = 99 U/L 34-122 5819575444) ALTv (test code = 19 U/L 5-50 2-6) AST(SGOT) (test code = 25 U/L 13-40 8824482434) eGFR (test code = mL/min/1.73m2 4655028024) JEAN MARIE (test code = JEAN MARIE) Association of Glomerular Filtration Rate (GFR) and Staging of Kidney Disease* + --+ --+ ------+| GFR (mL/min/1.73 m2) ?| With Kidney Damage ?| ?Without Kidney Damage+ --------+ --------+ +| ?>90 ?| ?Stage one ?| ? Normal ?+ ---+ ---+ -------+| ?60-89 ?| ?Stage two ?| ? Decreased GFR ? + --+ --+ ------+| ?30-59 ?| ?Stage three ?| ? Stage three ? + --+ --+ ------+| ?15-29 ?| ?Stage four ? | ? Stage four ?+ ---+ ---+ -------+| ?<15 (or dialysis) ? ?| ?Stage five ? | ? Stage five ?+ ---+ ---+ -------+ *Each stage assumes the associated GFR level has been in effect for at least three months. ?Stages 1 to 5, with or without kidney disease, indicate chronic kidney disease. Notes: Determination of stages one and two (with eGFR >59mL/min/1.73 m2) requires estimation of kidney damage for at least three months as defined by structural or functional abnormalities of the kidney, manifested by either:Pathological abnormalities or Markers of kidney damage (including abnormalities in the composition of the blood or urine or abnormalities in imaging tests). Lab Interpretation Abnormal (test code = 01291-4) [facility]ressTHYROID STIMULATING [id number] 19:02:26 Test Item Value Reference Range Interpretation Comments TSH (test code = See_Comment [Automated message] 1042611701) The system [email or web address] generated this result transmitted ref erence range: 0.45 - 4 .70 mIU/L. The refe rence range was not u sed to interpret this result as normal/abnor mal. Lab Interpretation (test Normal code = 19407-5) [facility] OR C [id number] 18:53:49 Test Item Value Reference Range Interpretation Comments RSV Antigen (test code = Negative Negative 5099443607) JEAN MARIE (test code = JEAN MARIE) Performed on [employer]. Lab Interpretation (test Normal code = 11667-5) [facility] CypressFREE [id number] 18:49:45 Test Item Value Reference Range Interpretation Comments FREE T4 (test code = See_Comment [Autom ated message] 2026371542) The system [email or web address] generated this result transmitted ref erence range: 0.78 - 2 .20 ng/dL:. The ref erence range was not u sed to interpret this result as normal/abnor mal. Lab Interpretation (test Normal code = 91633-6) [facility]ressCOVID-19 (ID NOW RAPID TESTING)2020-09-29 18:49:25 Test Item Value Reference Range Interpretation Comments SARS-CoV-2 Rapid ID NOW Not Detected Not Detected (test code = 83354-3) JEAN MARIE (test code = JEAN MARIE) ID NOW COVID-19 Assay is an isothermal nucleic acid amplification test intended for the qualitative detection of nucleic acid from SARS-CoV-2 viral RNA in nasopharyngeal (SQL ARCHITECT) specimens. It is used under Emergency Use Authorization (EUA) by FDA. The limit of detection (LOD) of the assay is 125 Genome Equivalents/mL. A positive result is indicative of the presence of SARS-CoV-2 RNA. ?Clinical correlation with patient history and other diagnostic information is necessary to determine patient infection status. A negative (Not Detected) result does not preclude SARS-CoV-2 infection. In patients with clinical symptoms and other tests that are consistent with SARS-CoV-2 infection, negative results should be treated as presumptive negative and a new specimen should be tested with alternative PCR molecular test. Invalid: Please collect a new specimen for repeat patient testing if clinically indicated. Lab Interpretation Normal (test code = 33196-8) [facility]ressPOCT GLUCOSE (AUTOMATED)2020-09-29 18:45:17 Test Item Value Reference Range Interpretation Comments POCT GLU (test code = 6802925349) 112 mg/dL 70-110 H Lab Interpretation (test code = Abnormal 78235-7) [facility] CypressTROPONIN [id number] 18:44:27 Test Item Value Reference Interpretation Comments Range TROPONIN I (test 0.018 ng/mL See_Comment [Automated code = 4494420933) message] The system which generated this result transmitted reference range : <=0.034. The reference range was not used to interpret this result as normal/abnormal . JEAN MARIE (test code = Reference (Normal) JEAN MARIE) Range (defined by the 99th percentile reference limit): <= 0.034 ng/mL Note: Cardiac troponin begins to rise 3-4 hours after the onset of ischemia. Repeat in 4-6 hours if the sample was drawn within 3-4 hours of the onset of the symptom and found normal. Diagnosis of myocardial injury is made with acute changes in cTn concentrations with at least one serial sample above the 99th percentile upper reference limit (URL), taken together with the patient's clinical presentation. Biotin has been reported to cause a negative bias, interpret results relative to patient's use of biotin. Lab Interpretation Normal (test code = 08632-0) [facility] CypressLIPASE2021-07-18 18:41:25 Test Item Value Reference Range Interpretation Comments LIPASE (test code = 8481639002) 19 U/L 0-220 Lab Interpretation (test code = Normal 04535-4) [facility] CypressN-TERMINAL [id number] 18:41:25 Test Item Value Reference Range Interpretation Comments NT-proBNP (test code 1010 pg/mL See_Comment H [Autom ated = 1547753944) message] The system which generated this result transmitted reference range : <=450. The reference range was not used to interpret this result as normal/abnormal . JEAN MARIE (test code = JEAN MARIE) Biotin has been reported to cause a negative bias, interpret results relative to patient's use of biotin. Lab Interpretation Abnormal (test code = 18063-1) [facility] CypressETHANOL2021-07-18 18:36:48 Test Item Value Reference Range Interpretation Comments ALCOHOL (test code = <10 mg/dL 0933585867) JEAN MARIE (test code = JEAN MARIE) <10 Qxnkasnz56-910 Toxic>100 Depression of S[employer] AGE [employer] TE[employer]>400 Fatalities Reported [facility] WITH [id number] 18:24:29 Test Item Value Reference Range Interpretation Comments WBC (test code = See_Comment H [Automated 6198-2) message] The system which generated this result transmit donn reference range : 4.20 - 10.70 10*3/?L. The reference range was not used to interpret this result as normal/abnormal . RBC (test code = See_Comment [Automated 319-8) message] The system which generated this result transmit donn reference range : 4.26 - 5.52 10*6/?L. The reference range was not used to interpret this result as normal/abnormal . HGB (test code = 13.3 g/dL 12.2-16.4 718-7) HCT (test code = 40.0 % 38.4-49.3 4544-3) MCV (test code = 92.0 fL 81.7-95.6 787-2) MCH (test code = 30.6 pg 26.1-32.7 785-6) MCHC (test code = 33.3 g/dL 31.2-35.0 786-4) RDW-SD (test code = 44.9 fL 38.5-51.6 00966-3) RDW-CV (test code = 13.2 % 12.1-15.4 788-0) PLT (test code = See_Comment [Automated 777-3) message] The system which generated this result transmit donn reference range : 150 - 328 10*3/ ?L. The reference range was not u sed to interpret th is result as normal/abnormal . MPV (test code = 10.3 fL 9.8-13.0 81026-8) NRBC/100 WBC (test See_Comment [Automat ed code = 6051486598) message] The system which generated this result transmit donn reference range : 0.0 - 10.0 /100 WBCs. The reference range was not used to interpret this result as normal/abnormal . NRBC x10^3 (test code <0.01 See_Comment [Auto mated = 6351610104) message] The system which generated this result transmit donn reference range : 10*3/?L. The reference range was not used to interpret this result as normal/abnormal . GRAN MAT (NEUT) % 89.7 % (test code = 770-8) IMM GRAN % (test code 0.80 % = 9402780327) LYMPH % (test code = 2.8 % 736-9) MONO % (test code = 6.4 % 5905-5) EOS % (test code = 0.0 % 713-8) BASO % (test code = 0.3 % 706-2) GRAN MAT x10^3(ANC) 16.90 10*3/uL 1.99-6.95 H (test code = 0477664506) IMM GRAN x10^3 (test 0.15 10*3/uL 0.00-0.06 H code = 0792640213) LYMPH x10^3 (test code 0.53 10*3/uL 1.09-3.23 L = 731-0) MONO x10^3 (test code 1.21 10*3/uL 0.36-1.02 H = 742-7) EOS x10^3 (test code = <0.03 0.06-0.53 L 711-2) BASO x10^3 (test code 0.05 10*3/uL 0.01-0.09 = 704-7) Lab Interpretation Abnormal (test code = 58507-9) [facility] CypressAMMONIA, [id number] 18:10:31 Test Item Value Reference Range Interpretation Comments AMMONIA (test code = 1161555284) <9 9-33 L Lab Interpretation (test code = Abnormal 97317-0) [facility] CypressCT HEAD WO [id number] 18:07:52 Within the limitations of motion artifact, no acute findings. Stable headCT compared to 07/09/2019.HISTORY:Delirium TECHNIQUE: Noncontrast head CT was performed. COMPARISON:07/08/2025 FINDINGS: Redemonstrated of the right parietal ventriculostomy catheter with smallhypodensity along the course of the catheter, likely representing gliosis.The catheter is unchanged position. The ventricular size and configuration is unchanged including the cysticregion close to the foramen of Monro. Motion artifact limits evaluation. There is no midline shift. The basalcisterns are preserved. No large vascular territory infarction,intracranial hemorrhage or mass effect is seen. The extracranial tissues demonstrate noacute findings. [facility], Radiant Results Inft User - 09/29/2020 1:09 PM CDT HISTORY:Delirium TECHNIQUE: Noncontrast head CT was performed.COMPARI SON:07/08/2025FINDINGS:Redemonstrated of the right parietal ventriculostomy catheter with smallhypodensity along the course of the catheter, likely representing gliosis.The catheter is unchanged position.The ventricular size and configuration is unchanged including the cysticregion close to the foramenof Monro.Motion artifact limits evaluation. There is no midline shift. The basalcisterns are preserved. No large vascular territory infarction,intracranial hemorrhage or mass effect is seen.The extracranial tissues demonstrate no acute findings.IMPRESSIONWithin the limitations of motion artifact, no acute findings. Stable headCT [facility] 2020-09-29 18:05:27 Test Item Value Reference Range Interpretation Comments APPEARANCE (test code = Hazy Clear A 5534848676) COLOR (test code = Yellow Yellow 8267819482) PH (test code = 4.8-8.0 9422224343) SP GRAVITY (test code = 1.003-1.030 5711973595) GLU U QUAL (test code = Normal Normal 5123874350) BLOOD (test code = 2+ Negative A 0725454255) KETONES (test code = Negative Negative 2758044636) PROTEIN (test code = 30 mg/dL Negative A 2887-8) UROBILIN (test code = Normal Normal 4390087888) BILIRUBIN (test code = Negative Negative 3452111428) NITRITE (test code = Negative Negative 5950601446) LEUK KENDALL (test code = 25/uL Negative A 3052953616) RBC/HPF (test code = See_Comment H [Autom ated message] 4792307334) The system [employer] generated this result transmitted ref erence range: 0 - 3 HP F. The reference range was not used to int erpret this result as normal/abnormal . WBC/HPF (test code = See_Comment H [Autom ated message] [id number]) The system [employer] generated this result transmitted ref erence range: 0 - 5 HP F. The reference range was not used to int erpret this result as normal/abnormal . BACTERIA (test code = Few Negative A 4039300395) MUCOUS (test code = Slight Negative LPF A 2773027463) HYAL CAST (test code = See_Comment [Aut omated message] 5424336747) The system [employer] generated this result transmitted ref erence range: <=2 LPF. The reference range was not used to int erpret this result as normal/abnormal . Lab Interpretation (test Abnormal code = 53957-4) [facility] THRM[facility] [id number] 17:59:02 Test Item Value Reference Range Interpretation Comments APTT Patient (test See_Comment [Automat ed code = 3173-2) message] The system which generated this result transmitted reference range : 23 - 38 Seconds . The reference range was not used to interpr et this result as normal/abnormal . JEAN MARIE (test code = JEAN MARIE) The [facility] patient population mean normal value for aPTT is 30 seconds. Lab Interpretation Normal (test code = 52908-5) [facility] / [id number] 17:57:01 Test Item Value Reference Range Interpretation Comments PROTIME PATIENT (test See_Comment [Auto mated message] code = 5964-2) The system [facility] generated this result transmitted ref erence range: 12.0 - 1 4.7 Seconds. The re ference range was not u sed to interpret this result as normal/abnor mal. INR (test code = 6301-6) Nor mal INR <1.1; Warfarin Therap eutic range 2.0 to 3. 0 or 2.5 to 3.5, dep ending upon the indica tions. Lab Interpretation (test Normal code = 35967-0) [facility] PAN[facility] 21 + LACTIC [id number] 17:48:56 Test Item Value Reference Range Interpretation Comments PH (test code = 7.32-7.42 H 6079850256) PCO2 MAGGIE (test code = See_Comment L [Auto mated [id number]) message] The sy stem which generated this result transmitted reference range : 41 - 51 mmHg. The reference range was not used to interpret this result as normal/abnormal . PO2 MAGGIE (test code = See_Comment H [Autom ated 8285947255) message] The sy stem which generated this result transmitted reference range : 25 - 40 mmHg. The reference range was not used to interpret this result as normal/abnormal . HCO3 MAGGIE (test code = See_Comment L [Auto mated [id number]) message] The sy stem which generated this result transmitted reference range : 24 - 28 mEq/L. The reference range was not used to interpret this result as normal/abnormal . AC VBE(BEAKER) (test mEq/L code = 3422582160) THB MAGGIE (test code = 14.7 g/dL 13.5-18.0 9186318181) %O2HB MAGGIE (test code = 89.5 % 52.0-63.0 H 8837516922) %COHB MAGGIE (test code = 1.0 % 0.0-1.5 8683739775) %METHB MAGGIE (test code = 0.3 % 0.4-1.5 L 4583989587) VOL%O2 MAGGIE (test code = 18.5 % 6.0-12.0 H 8022208744) NA (test code = 137 mmol/L 135-145 6511192466) K+ (test code = 4.4 mmol/L 3.5-5.0 6948193103) AC CA IONZ (test code = 4.20 mg/dL 4.50-5.30 L 4218655165) GLUCOSE (test code = 134 mg/dL 70-110 H 9834842743) LACTIC ACID (test code 2.78 mmol/L 0.50-2.20 H = 0149841271) Lab Interpretation Abnormal (test code = 39346-4) [facility]"
[2022-10-28 09:25] LABS: Hematocrit 39.3 % (39.6-49.0); MCV 87.7 fL (80-100); Platelets 151 thou/uL (152-406); RBC Red Blood Cell Count 4.49 M/uL (4.33-5.43)
[2022-10-28 09:38] LABS: Potassium 3.9 mEq/L (3.5-5.1)
--- NOTE | 2022-10-28 10:59 | RAD REPORT ---
EXAM DESCRIPTION: RAD - Femur Right - 10/28/2022 9:53 am CLINICAL HISTORY: fall COMPARISON: No comparisons TECHNIQUE: Right femur, 2 views. FINDINGS: There is no dislocation or periosteal reaction noted. Moderate to advanced right hip degen erative changes. Moderate knee joint degenerative changes with medial weight-bearing joint space narr owing. No foreign body or other soft tissue abnormality. IMPRESSION: No acute osseus abnormality. Moderate to advanced degenerative changes as above. .
--- NOTE | 2022-10-28 11:00 | RAD REPORT ---
EXAM DESCRIPTION: RAD - Hip Right 2 View - 10/28/2022 9:53 am CLINICAL HISTORY: fall COMPARISON: No comparisons TECHNIQUE: Right hip, AP and frog-leg views. FINDINGS: There is no fracture or dislocation. Moderate to advanced right hip joint degenerative namrata nges. No acute or destructive bony process seen. IMPRESSION: No acute findings of the right hip. Moderate to advanced right hip degenerative changes .
--- NOTE | 2022-10-28 11:07 | ER ---
Nurse's Notes [facility] Name: Rajendra Collado Age: 81 yrs Sex: Male : 1940 Arrival Date: 10/28/2022 Time: 08:58 Bed 17 Private MD: Diagnosis: Fall on same level, unspecified;Pain in right hip Presentation: 10/28 09:04 Chief complaint: EMS states: FALL LAST PM, LAID ON FLOOR OVERNIGHT, NOW WITH R HIP bp PAIN. Coronavirus screen: At this time, the client does not indicate any symptoms associated with coronavirus-19. Ebola Screen: No symptoms or risks identified at this time. Initial Sepsis Screen: Does the patient meet any 2 criteria? No. Patient's initial sepsis screen is negative. Does the patient have a suspected source of infection? No. Patient's initial sepsis screen is negative. Risk Assessment: Do you want to hurt yourself or someone else? Patient reports no desire to harm self or others. Onset of symptoms is unknown. 09:04 Method Of Arrival: EMS: [facility] bp 09:04 Acuity: CHRIS 4 bp Triage Assessment: 09:06 General: Appears in no apparent distress. Behavior is calm, cooperative. Pain: Denies bp pain. 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 - Social history:: Smoking status: Patient denies any tobacco usage or history of. Screenin:20 [facility] ED Fall Risk Assessment (Adult) History of falling in the last 3 months, kc6 including since admission Yes- single mechanical fall (1 pt) Confusion or Disorientation Yes (5 pts) Intoxicated or Sedated No (0 pts) Impaired Gait Yes (1 pt) Mobility Assist Device Used Yes (1 pt) Altered Elimination No (0 pt) Score/Fall Risk Level 3 or more points = High Risk. Abuse screen: Denies threats or abuse. Denies injuries from another. Nutritional screening: No deficits noted. Tuberculosis screening: No symptoms or risk factors identified. Assessment: 09:21 General: Appears in no apparent distress. comfortable, Behavior is cooperative, kc6 appropriate for age, drowsy. Pain: Complains of pain in right leg. Neuro: Level of Consciousness is obeys commands, Oriented to person, Appropriate for age. Cardiovascular: Capillary refill < 3 seconds. Respiratory: Airway is patent Trachea midline Respiratory effort is even, unlabored, Respiratory pattern is regular, symmetrical. GI: No signs and/or symptoms were reported involving the gastrointestinal system. : No signs and/or symptoms were reported regarding the genitourinary system. EENT: No signs and/or symptoms were reported regarding the EENT system. Derm: Skin has skin tears on right elbow Skin is pink, warm \T\ dry. Musculoskeletal: No signs and/or symptoms reported regarding the musculoskeletal system. Circulation, motion, and sensation intact. Capillary refill < 3 seconds, Range of motion: intact in all extremities. 10:03 Reassessment: Patient appears in no apparent distress at this time. No changes from kc6 previously documented assessment. Patient and/or family updated on plan of care and expected duration. Pain level reassessed. 10:55 Reassessment: Patient appears in no apparent distress at this time. No changes from kc6 previously documented assessment. Patient and/or family updated on plan of care and expected duration. Pain level reassessed. 11:09 Reassessment: PER FAMILY, SPOUSE UNABLE TO CARE FOR PT, SOCIAL WORK C/S FOR PLACEMENT bp ORDERED. 11:13 Reassessment: d/c pending social media senior associate consult. kc 11:55 Reassessment: Patient appears in no apparent distress at this time. No changes from kc6 previously documented assessment. Patient and/or family updated on plan of care and expected duration. Pain level reassessed. 12:55 Reassessment: Patient appears in no apparent distress at this time. No changes from kc6 previously documented assessment. Patient and/or family updated on plan of care and expected duration. Pain level reassessed. 13:00 Reassessment: informed that social media senior associate will be unavailable until this kc6 afternoon. offered her to wait for social work, be discharged home, or I could contact [facility] in [place] for an evaluation. opted for discharge at this time and was sent home with [facility] contact info. Vital Signs: 09:04 BP 140 / 93; Pulse 55; Resp 16; Temp 98; Pulse Ox 98% ; bp 10:03 BP 136 / 63; Pulse 50; Resp 17 S; Pulse Ox 96% on R/A; kc6 10:55 BP 133 / 69; Pulse 56; Resp 18 S; Pulse Ox 93% on R/A; kc6 12:27 BP 139 / 90; Pulse 50; Resp 17 S; Pulse Ox 96% on R/A; kc6 13:21 BP 152 / 61; Pulse 56; Resp 18 S; Pulse Ox 99% on R/A; kc6 ED Course: 09:00 Patient arrived in ED. sb4 09:00 Malu Henriquez PA-C is PHCP. sb4 09:00 Luis M Gonzalez MD is Attending Physician. sb4 09:04 Jacques Verdugo, RN is Primary Nurse. bp 09:06 Triage completed. bp 09:06 Arm band placed on. bp 09:20 Inserted saline lock: 20 gauge in right antecubital area, using aseptic technique. kc6 Blood collected. 09:22 Patient has correct armband on for positive identification. Bed in low position. Call kc6 light in reach. Side rails up X2. Adult w/ patient. 09:55 Femur Right XRAY In Process Unspecified. EDMS 09:55 Hip Right 2 View XRAY In Process Unspecified. EDMS 13:36 No provider procedures requiring assistance completed. IV discontinued, intact, kc6 bleeding controlled, No redness/swelling at site. Pressure dressing applied. 13:38 Provided Education on: contacting [facility]. kc6 Administered Medications: No medications were administered Medication: 13:38 VIS not applicable for this client. kc6 Outcome: 11:07 Discharge ordered by . sb4 13:38 Discharged to home via wheelchair, with significant other. kc6 13:38 Condition: stable 13:38 Discharge instructions given to patient, Instructed on discharge instructions, follow up and referral plans. Demonstrated understanding of instructions, follow-up care. 13:39 Patient left the ED. kc6 Signatures: Dispatcher [employer] EDMS Jacques Verdugo, Gretta Castro RN, RN RN kc6 Malu Henriquez PA-C PA-C sb4
--- NOTE | 2022-10-28 11:07 | EDPHYS ---
Physician Documentation [facility] Name: Rajendra Collado Age: 81 yrs Sex: Male : 1940 Arrival Date: 10/28/2022 Time: 08:58 Bed 17 Private MD: KELLY Physician Luis M Gonzalez HPI: 10/28 09:01 This 81 yrs old Male presents to ER via Unassigned with complaints of fall. sb4 09:01 Details of fall: The patient fell from an upright position, while standing. Onset: The sb4 symptoms/episode began/occurred last night. Associated injuries: The patient sustained right leg, painful injury. The patient has not experienced similar symptoms in the past. The patient has been recently seen by a physician: in [place]. Per , patient fell down last night around 1030 onto his right hip/leg. His was unable to get him up so he laid on the ground all night until she called EMS this morning. Patient has dementia but has no complaints at this time. states he was seen at the [place] yesterday because she had concern for UTI but it was negative. 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 - Social history:: Smoking status: Patient denies any tobacco usage or history of. ROS: 09:01 Constitutional: Negative for fever, chills, and weight loss. sb4 09:01 MS/extremity: Negative for decreased range of motion, swelling, tenderness. 09:01 All other systems are negative. Exam: 09:01 Constitutional: This is a well developed, well nourished patient who is awake, alert, sb4 and in no acute distress. Head/Face: Normocephalic, atraumatic. Eyes: Extra-ocular motions intact. Periorbital areas with no swelling, redness, or edema. Cardiovascular: Regular rate and rhythm with a normal S1 and S2. Respiratory: Lungs have equal breath sounds bilaterally, clear to auscultation and percussion. No rales, rhonchi or wheezes noted. No increased work of breathing, no retractions or nasal flaring. Abdomen/GI: Soft, non-tender, no distension. Skin: Warm, dry with normal turgor. Normal color with no rashes, no lesions, and no evidence of cellulitis. MS/ Extremity: Pulses equal, no cyanosis. Neurovascular intact. Full, normal range of motion. Vital Signs: 09:04 BP 140 / 93; Pulse 55; Resp 16; Temp 98; Pulse Ox 98% ; bp 10:03 BP 136 / 63; Pulse 50; Resp 17 S; Pulse Ox 96% on R/A; kc6 10:55 BP 133 / 69; Pulse 56; Resp 18 S; Pulse Ox 93% on R/A; kc6 12:27 BP 139 / 90; Pulse 50; Resp 17 S; Pulse Ox 96% on R/A; kc6 13:21 BP 152 / 61; Pulse 56; Resp 18 S; Pulse Ox 99% on R/A; kc6 MDM: 09:00 Patient medically screened. sb4 09:01 Differential diagnosis: hip fracture, femur fracture, hip dislocation, hip contusion. sb4 09:04 Differential diagnosis: rhabdomyolsis. sb4 11:06 Data reviewed: vital signs, nurses notes, lab test result(s), radiologic studies, and sb4 as a result, I will discharge patient. Historians other than the Patient: Spouse/Significant Other: . Care significantly affected by the following chronic conditions: dementia. Counseling: I had a detailed discussion with the patient and/or guardian regarding: the historical points, exam findings, and any diagnostic results supporting the discharge/admit diagnosis, lab results, radiology results. 10/28 09:01 Order name: CBC w/o diff; Complete Time: 09:44 sb4 10/28 09:01 Order name: BMP; Complete Time: 09:44 sb4 10/28 09:01 Order name: CPK; Complete Time: 09:44 sb4 10/28 09:00 Order name: Femur Right XRAY; Complete Time: 10:59 sb4 10/28 09:00 Order name: Hip Right 2 View XRAY; Complete Time: 11:04 sb4 10/28 11:10 Order name: Social Service Consult EDMS Administered Medications: No medications were administered Disposition Summary: 10/28/22 11:07 Discharge Ordered Location: Home sb4 Problem: new sb4 Symptoms: are unchanged sb4 Condition: Stable sb4 Diagnosis - Fall on same level, unspecified sb4 - Pain in right hip sb4 Followup: sb4 - With: Private Physician - When: As needed - Reason: Recheck today's complaints, Continuance of care, Re-evaluation by your physician Discharge Instructions: - Discharge Summary Sheet sb4 - Fall Prevention in the Home, Adult, [id number] sb4 - Hip Pain sb4 Forms: - Medication Reconciliation Form sb4 - Thank You Letter sb4 - Antibiotic Education sb4 - Prescription Opioid Use sb4 - Patient Portal Instructions sb4 - Leadership Thank You Letter sb4 Signatures: Dispatcher [employer] Jacques Hill RN RN Malu Duvall PASherylC PADebbie sb4 Corrections: (The following items were deleted from the chart) 09:05 09:01 Per , patient fell down last night around 1030 onto his right hip/leg. His sb4 was unable to get him up so he laid on the ground all night until she called EMS this morning. Patient has dementia but has no complaints at this time. sb4
[2022-10-28 13:45] VITALS: TEMP 98
[2022-10-28 13:50] VITALS: BP 152/61; O2SAT 99
== END 2022-10-28 13:39 | disposition home or self-care (01) ==
LOC: ER 08:58
DX: M25.551 Pain in right hip (principal); W18.30XA Fall on same level, unspecified, initial encounter; I10 Essential (primary) hypertension; F03.90 Unspecified dementia, unspecified severity, without behavioral disturbance, psychotic disturbance, mood disturbance, and anxiety; Z95.818 Presence of other cardiac implants and grafts
CPT/HCPCS: 36415; 80048; 82550; 85027

== ENCOUNTER 2022-10-30 10:56 | Emergency (ER) | payer OTHER ==
--- OUTSIDE RECORDS SUMMARY | 2022-10-30 11:00 | XMS REPORT | Continuity of Care Document ---
:1940 Author Organization [facility] t Address [address] [place] [address] [place] [id number] Care Team Providers Name Role Phone [place], [facility] Primary Care Physician Therapy, [facility] Covid Infusion Attending Clinician Unavailable Jayda Harden MD Attending Clinician JAYDA HARDEN Attending Clinician Unavailable Ruiz Walker Attending Clinician Peter MORAN, Luis Felipe Attending Clinician LUIS FELIPE GREEN Attending Clinician Unavailable Doctor Unassigned, [place] Attending Clinician Unavailable Roseanne Fitzgerald Attending Clinician [phone] Heidi LAWRENCE, Jaycee Attending Clinician Unavailable Antonio Davey MD Attending Clinician Brandin Sawyer MD, Mark Anthony Hess Attending Clinician [phone] Josué Coburn MD Attending Clinician Concha Azul [...] Active Univers [facility]ERGIE Class ity of [facility] Social History Social Habit Start Date Stop Date Quantity Comments Source Exposure to 2021-10-03 2021-10-13 Yes [facility] SARS-CoV-2 00:00:00 17:30:00 [facility] (event) [place] Tobacco use and 2021-06-14 2021-06-14 Smokeless tobacco Un iversity of exposure 00:00:00 00:00:00 non-user [facility] Sex Assigned At [birth year] Universit y of 00:00:00 00:00:00 [facility] Smoking Status Start Date Stop Date Source Unknown if ever smoked [facility] y [facility] Never smoked tobacco [facility] Medications Ordered Filled Start Stop Current Ordering Indication Dosage Frequency Signature Comments Components Source Medication Medication Date Date Medication? Clinician (SIG) Name Name memantine Yes 10mg Take 10 mg Un [place] 10 mg 8-01 by mouth 2 ity of tablet 17:33: (two) [place] 13 times Medical daily. Branch memantine Yes 10mg Take 10 mg Un martin 10 mg 8-01 by mouth 2 ity of tablet 17:33: (two) [place] 13 times Medical daily. Branch amLODIPine Yes 5mg Take 5 mg Un [place] 5 mg tablet 4-02 by mouth ity of 13:40: daily. [address] donepeziL Yes 10mg Take 10 mg Un [place] 10 mg 4-02 by mouth ity of tablet 13:40: at [place] [address] bedtime. Medical Branch SERTraline 0 Yes 50mg Take 50 mg U nivers 50 mg 4-02 by mouth ity of tablet 13:40: daily. [place] [address] Medical Branch losartan 25 2021-0 Yes 25mg Take 25 mg Univers mg tablet 4-02 by mouth ity of 13:40: daily. [place] [address] Medical Branch atorvastati 2021-0 Yes 20mg Take 20 mg Univers n 20 mg 4-02 by mouth ity of tablet 13:40: at [place] [address] bedtime. Medical Branch memantine 0 Yes 10mg Take 10 mg Un [place] 10 mg 4-02 by mouth 2 ity of tablet 13:40: (two) [place] 50 times Medical daily. Branch aspirin 81 2021-0 Yes 81mg Take 81 mg U nivers mg chewable 4-02 by mouth ity of tablet 13:40: daily. [address] Branch amLODIPine 2021-0 Yes 5mg Take 5 mg Un [place] 5 mg tablet 4-02 by mouth ity of 13:40: daily. [place] [address] Medical Branch donepeziL 2021-0 Yes 10mg Take 10 mg Un [place]in 10 mg 4-02 by mouth ity of tablet 13:40: at [place] [address] bedtime. Medical Branch SERTraline 2021-0 Yes 50mg Take 50 mg U nivers 50 mg 4-02 by mouth ity of tablet 13:40: daily. [address] losartan 25 2021-0 Yes 25mg Take 25 mg Univers mg tablet 4-02 by mouth ity of 13:40: daily. [place] [address] Medical Branch atorvastati 2021-0 Yes 20mg Take 20 mg Univers n 20 mg 4-02 by mouth ity of tablet 13:40: at [place] [address] bedtime. Medical Branch memantine 2021-0 Yes 10mg Take 10 mg Un martin 10 mg 4-02 by mouth 2 ity of tablet 13:40: (two) [place] 50 times Medical daily. Branch aspirin 81 2021-0 Yes 81mg Take 81 mg U nivers mg chewable 4-02 by mouth ity of tablet 13:40: daily. [place] [address] Medical Branch amLODIPine 2021-0 Yes 5mg Take 5 mg Un martin 5 mg tablet 4-02 by mouth ity of 13:40: daily. [place] [address] Medical Branch donepeziL Yes 10mg Take 10 mg Un martin 10 mg 4-02 by mouth ity of tablet 13:40: at [place] [address] bedtime. Medical Branch SERTraline 0 Yes 50mg Take 50 mg U nivers 50 mg 4-02 by mouth ity of tablet 13:40: daily. [place] [address] Medical Branch losartan 25 0 Yes 25mg Take 25 mg Univers mg tablet 4-02 by mouth ity of 13:40: daily. [place] [address] Medical Branch atorvastati 0 Yes 20mg Take 20 mg Univers n 20 mg 4-02 by mouth ity of tablet 13:40: at [place] [address] bedtime. Medical Branch aspirin 81 0 Yes 81mg Take 81 mg U nivers mg chewable 4-02 by mouth ity of tablet 13:40: daily. [place] [address] Medical Branch amLODIPine 0 Yes 5mg Take 5 mg Un martin 5 mg tablet 4-02 by mouth ity of 13:40: daily. [place] [address] Medical [place] donepeziL Yes 10mg Take 10 mg Un martin 10 mg 4-02 by mouth ity of tablet 13:40: at [place] [address] bedtime. Medical Branch SERTraline Yes 50mg Take 50 mg U nivers 50 mg 4-02 by mouth ity of tablet 13:40: daily. [address] losartan 25 0 Yes 25mg Take 25 mg Univers mg tablet 4-02 by mouth ity of 13:40: daily. [place] [address] Medical [place] atorvastati Yes 20mg Take 20 mg Univers n 20 mg 4-02 by mouth ity of tablet 13:40: at [place] [address] bedtime. Medical Branch aspirin 81 0 Yes 81mg Take 81 mg U nivers mg chewable 4-02 by mouth ity of tablet 13:40: daily. [place] [address] Medical Branch sulfamethox Yes [id number] 1{tbl} Take 1 Univers azole-trime 06-14 [id number] tablet by i ty of thoprim 00:00: mouth 2 [place] (BACTRIM 00 (two) Medical DS) 800-160 times Branch mg per daily. tablet mupirocin 2 Yes [id number] Apply to Univers % ointment 4-02 655162 area(s) 3 it y of 00:00: (three) [place] 00 times Medical daily. Branch sulfamethox 2021-0 Yes [id number] 1{tbl} Take 1 Univers azole-trime 4- [id number] tablet by i ty of thoprim 00:00: mouth 2 [place] (BACTRIM 00 (two) Medical DS) 800-160 times Branch mg per daily. tablet mupirocin 2 2021-0 Yes [id number] Apply to Univers % ointment 4- 178028 area(s) 3 it y of 00:00: (three) [place] 00 times Medical daily. Branch sulfamethox 2021-0 Yes [id number] 1{tbl} Take 1 Univers azole-trime 4- [id number] tablet by i ty of thoprim 00:00: mouth 2 [place] (BACTRIM 00 (two) Medical DS) 800-160 times Branch mg per daily. tablet mupirocin 2 2021-0 Yes [id number] Apply to Univers % ointment 4- 662113 area(s) 3 it y of 00:00: (three) [place] 00 times Medical daily. Branch sulfamethox 2021-0 Yes [id number] 1{tbl} Take 1 Univers azole-trime 4- [id number] tablet by i ty of thoprim 00:00: mouth 2 [place] (BACTRIM 00 (two) Medical DS) 800-160 times Branch mg per daily. tablet mupirocin 2 2021-0 Yes [id number] Apply to Univers % ointment 4- 788387 area(s) 3 it y of 00:00: (three) [place] 00 times Medical daily. Branch amLODIPine 2020-0 Yes 5mg Take 5 mg Un martin 5 mg tablet 7-21 by mouth ity of 20:23: daily. [place] [address] Medical Branch donepeziL 2020-0 Yes 10mg Take 10 mg Un martin 10 mg 7-21 by mouth ity of tablet 20:23: at [place] [address] bedtime. Medical Branch SERTraline 2020-0 Yes 50mg Take 50 mg U nivers 50 mg 7-21 by mouth ity of tablet 20:23: daily. [address] Branch losartan 25 2020-0 Yes 25mg Take 25 mg Univers mg tablet 7-21 by mouth ity of 20:23: daily. [place] 06 Medical Branch atorvastati 2020-0 Yes 20mg Take 20 mg Univers n 20 mg 7-21 by mouth ity of tablet 20:23: at [place] [address] bedtime. Medical Branch memantine 2020-0 Yes 10mg Take 10 mg Un martin 10 mg 7-21 by mouth 2 ity of tablet 20:23: (two) times Medical daily. Branch amLODIPine 2020-0 Yes 5mg Take 5 mg Un [place] 5 mg tablet 7-21 by mouth ity of 20:23: daily. [place] [address] Medical Branch donepeziL 2020-0 Yes 10mg Take 10 mg Un martin 10 mg 7-21 by mouth ity of tablet 20:23: at [place] [address] bedtime. Medical Branch SERTraline 2020-0 Yes 50mg Take 50 mg U nivers 50 mg 7-21 by mouth ity of tablet 20:23: daily. [place] [address] Medical Branch losartan 25 2020-0 Yes 25mg Take 25 mg Univers mg tablet 7-21 by mouth ity of 20:23: daily. [place] [address] Medical Branch atorvastati 2020-0 Yes 20mg Take 20 mg Univers n 20 mg 7-21 by mouth ity of tablet 20:23: at [place] [address] bedtime. Medical Branch memantine 2020-0 Yes 10mg Take 10 mg Un [place] 10 mg 7-21 by mouth 2 ity of tablet 20:23: (two) times Medical daily. Branch amLODIPine 2020-0 Yes 5mg Take 5 mg Un [place] 5 mg tablet 7-21 by mouth ity of 20:23: daily. [place] [address] Medical Branch donepeziL 2020-0 Yes 10mg Take 10 mg Un martin 10 mg 7-21 by mouth ity of tablet 20:23: at [place] [address] bedtime. Medical Branch SERTraline 2020-0 Yes 50mg Take 50 mg U nivers 50 mg 7-21 by mouth ity of tablet 20:23: daily. [place] [address] Medical Branch losartan 25 2020-0 Yes 25mg Take 25 mg Univers mg tablet 7-21 by mouth ity of 20:23: daily. [place] [address] Medical Branch atorvastati 2020-0 Yes 20mg Take 20 mg Univers n 20 mg 7-21 by mouth ity of tablet 20:23: at [place] [address] bedtime. Medical Branch memantine 2021-0 Yes 10mg [...] ity of 1,000 mg in 05:00: Piggyback, [place] NaCl 0.9% 00 Q24H ABX, Medic al (NS) 50 mL First dose [facility] MINI-BAG on Wed10/02/20 at 0000, Until Discontinu ed, 50 mL
R halley for Anti-Infec tive: Documented Infection< br>Documen donn Infection Site: Urine<br&g t;Duration of Therapy: 7 days melatonin Yes 9mg 9 mg, Univers (MELATIN) 10-02 Oral, QHS, ity of tablet 9 mg 02:30: First dose [place] 00 (after Medical last Branch modificati on) on Wed10/01/20 at 2130, Until Discontinu ed, Routine cephALEXin Yes [id number] 500mg Take 1 Univers 500 mg 7-21 capsule by ity of capsule 00:00: mouth 4 [place] 00 (four) Medical times Branch daily. cephALEXin Yes [id number] 500mg Take 1 Univers 500 mg 7-21 capsule by ity of capsule 00:00: mouth 4 [place] 00 (four) Medical times Branch daily. cephALEXin Yes [id number] 500mg Take 1 Univers 500 mg 7-21 capsule by ity of capsule 00:00: mouth 4 [place] 00 (four) Medical times Branch daily. cephALEXin 2021- No [id number] 500mg Take 1 Univers 500 mg 7-21 [...] [place] mg 00 First dose Medical on [facility] Branch 09/30/20 at 0900, Until Discontinu ed, Routine heparin Yes 5000U 5,000 Univers (porcine) 09-30 Units, ity of injection 13:00: [place]cut[place]o [place] 5,000 Units 00 us, Q12H, Med ical First dose Branch on Wed09/30/20 at 0800, Until Discontinu ed, Routine Potassium 2020- No 40meq 40 mEq, Uni vers Bicarb-Citr 09-30 Oral, ity of ic Acid 10:45: 11:07 ONCE, 1 [place] (EFFER-K) 00 :00 dose, [facility] Medic al effervescen 09/30/20 at Br anch t tablet 40 0545, mEq Routine lactated 2020- No 500mL at 500 Unive rs ringers IV 09-30 mL/hr, 500 it y of infusion 07:00: 08:13 mL, [place] 500 mL 00 :00 Intravenou Medical s, ONCE, 1 Branch dose, [facility] 09/30/20 at 0200, Routine vancomycin 2020- No 15mg/kg 1,500 mg Univers 1500 mg in 09-30 (rounded ity of NS 250 mL 06:00: 12:57 from [place] IV 00 :57 1,768.5 mg Medical Piggyback = 15 mg/kg Bran ch RTU 1,500 ?117.9 mg kg), IV Piggyback, Q12H ABX, First dose on [facility] 09/30/20 at 0100, Until Discontinu ed
Reas on for Anti-Infec tive: Empiric Therapy for Suspected Infection< br>Empiric Therapy Site: Skin / Soft tissue
Duration of therapy: 7 days acetaminoph Yes 650mg 650 mg, Un martin en 09-30 Oral, ity of (TYLENOL) 05:58: Q4HPRN, [place] 160 mg/5 mL 53 Starting Medi katelin liquid 650 [facility] 09/30/20 at 0058, Until Discontinu ed, Routine, Temp > 38.5 C meropenem-0 2020-0 2020- No 1000mg 1,000 mg, Univers .9% sodium 09-30 0720 IV ity of chloride 03:30: 22:50 [place], [place] (MERREM) 1 00 :32 Administer Med ical gram/50 mL over 60 Branch RTU Minutes, infusion Q8H ABX, 1,000 mg First dose on [place] 09/29/20 at 2230, Until Discontinu ed, KELLIE
Re stricted use approved by: DODIE 8TH FLOOR
R halley for Anti-Infec tive: Empiric Therapy for Suspected Infection< br>Empiric Therapy Site: Urine
D uration of therapy: 72 hours memantine Yes 10mg 10 mg, Univer s (NAMENDA) 09-30 Oral, BID, ity of tablet 10 02:45: First dose [place] mg 00 on [facility] 09/29/20 at Branch 2145, Until Discontinu ed, Routine
seafood team member approving Restricted medication : JOSUÉ COBURN donepeziL Yes 10mg 10 mg, Univer s (ARICEPT) 09-30 Oral, QHS, ity of tablet 10 02:45: First dose [place] mg 00 on [facility] 09/29/20 at Branch 2145, Until Discontinu ed, Routine LORazepam 0 2020- No .5mg 0.5 mg, Univ ers (ATIVAN) 09-30 Slow IV ity of injection 01:15: 00:22 Push, [place] 0.5 mg 00 :00 ONCE, 1 Medical dose, [facility] 09/29/20 at 2015, STAT NaCl 0.9% 2020- No 1000mL at 999 Uni vers (NS) bolus 09-29 mL/hr, ity of infusion 22:30: 00:00 1,000 mL, [place] as 1,000 mL 00 :00 IV Medical Infusion, [place] ONCE, 1 dose, [place] 09/29/20 at 1730, STAT NaCl 0.9% 2020- No 1000mL at 999 Uni vers (NS) bolus 09-29 mL/hr, ity of infusion 22:30: 00:21 1,000 mL, [place] as 1,000 mL 00 :00 IV Medical Infusion, [place] ONCE, 1 dose, [place] 09/29/20 at 1730, STAT iopamidol 2020- No [id number] 100mL 100 mL, Univers (ISOVUE 09-29 Intravenou ity o f 370-500 mL) 21:15: 20:01 s, ONCE, 1 [place] injection 00 :00 dose, [facility] Medic al 100 mL 09/29/20 at [place] 1615, Routine acetaminoph 2020- No 650mg 650 mg, U nivers en 09-29 Rectal, ity of (TYLENOL) 21:00: 21:00 ONCE, 1 [place] suppository 00 :00 dose, [place] Med ical 650 mg 09/29/20 at [place] 1600, KELLIE ceFEPIme 2020- No 2g 2 g, IV Unive rs (MAXIPIME) 09-29 Piggyback, it y of 2 g in NaCl 19:00: 18:35 ONCE, 1 [place] 0.9% (NS) 00 :00 dose, Sun Medic al 100 mL 09/29/20 at [place] MINI-BAG 1400, 100 mL
Reas on for [...] Immunizations Ordered Filled Immunization Date Status Comments [facility] e Immunization Name Name TIMMY 2021-10-14 Completed University o f 00:00:00 [facility] Zoster Vaccine 2020-07-02 Completed University of Recombinant 00:00:00 [facility] Zoster Vaccine 2020-07-02 Completed University of Recombinant 00:00:00 [facility] Zoster Vaccine 2020-07-02 Completed University of Recombinant 00:00:00 [facility] Zoster Vaccine 2020-07-02 Completed University of Recombinant 00:00:00 [facility] Zoster Vaccine 2020-07-02 Completed University of Recombinant 00:00:00 [facility] Zoster Vaccine 2020-07-02 Completed University of Recombinant 00:00:00 [facility] Zoster Vaccine 2020-07-02 Completed University of Recombinant 00:00:00 [facility] SARS-COV-2 COVID-19 2020-04-19 Completed Unive rsity of MODERNA VACCINE 00:00:00 [facility] SARS-COV-2 COVID-19 2020-04-19 Completed Unive rsity of MODERNA VACCINE 00:00:00 [facility] SARS-COV-2 COVID-19 2020-04-19 Completed Unive rsity of MODERNA VACCINE 00:00:00 [facility] SARS-COV-2 COVID-19 2020-04-19 Completed Unive rsity of MODERNA VACCINE 00:00:00 [facility] SARS-COV-2 COVID-19 2020-04-19 Completed Unive rsity of MODERNA VACCINE 00:00:00 [facility] SARS-COV-2 COVID-19 2020-04-19 Completed Unive rsity of MODERNA VACCINE 00:00:00 [facility] SARS-COV-2 COVID-19 2020-04-19 Completed Unive rsity of MODERNA VACCINE 00:00:00 [facility] Influenza High Dose 2020-01-04 Completed Unive rsity of 00:00:00 [facility] Influenza High Dose 2020-01-04 Completed Unive rsity of 00:00:00 [facility] Influenza High Dose 2020-01-04 Completed Unive rsity of 00:00:00 [facility] Influenza High Dose 2020-01-04 Completed Unive rsity of 00:00:00 [facility] Influenza High Dose 2020-01-04 Completed Unive rsity of 00:00:00 [facility] Influenza High Dose 2020-01-04 Completed Unive rsity of 00:00:00 [facility] Influenza High Dose 2020-01-04 Completed Unive rsity of 00:00:00 [facility] Influenza Virus 2018-12-30 Completed Universit y of Vaccine 00:00:00 [facility] Influenza Virus 2018-12-30 Completed Universit y of Vaccine 00:00:00 [facility] Influenza Virus 2018-12-30 Completed Universit y of Vaccine 00:00:00 [facility] Influenza Virus 2018-12-30 Completed Universit y of Vaccine 00:00:00 [facility] Influenza Virus 2018-12-30 Completed Universit y of Vaccine 00:00:00 [facility] Influenza Virus 2018-12-30 Completed Universit y of Vaccine 00:00:00 [facility] Influenza Virus 2018-12-30 Completed Universit y of Vaccine 00:00:00 [facility] TDAP 2018-12-17 Completed University of 00:00:00 [facility] TDAP 2018-12-17 Completed University of 00:00:00 [facility] TDAP 2018-12-17 Completed University of 00:00:00 [facility] TDAP 2018-12-17 Completed University of 00:00:00 [facility] TDAP 2018-12-17 Completed University of 00:00:00 [facility] TDAP 2018-12-17 Completed University of 00:00:00 [facility] TDAP 2018-12-17 Completed University of 00:00:00 [facility] Influenza High Dose 2017-12-24 Completed Unive rsity of 00:00:00 [facility] Influenza High Dose 2017-12-24 Completed Unive rsity of 00:00:00 [facility] Influenza High Dose 2017-12-24 Completed Unive rsity of 00:00:00 [facility] Influenza High Dose 2017-12-24 Completed Unive rsity of 00:00:00 [facility] Influenza High Dose 2017-12-24 Completed Unive rsity of 00:00:00 [facility] Influenza High Dose 2017-12-24 Completed Unive rsity of 00:00:00 [facility] Influenza High Dose 2017-12-24 Completed Unive rsity of 00:00:00 [facility] Pneumococcal 13 2017-02-11 Completed Universit y of Conjugate, PCV13 00:00:00 [facility] dical (Prevnar 13) Branch Pneumococcal 13 2017-02-11 Completed Universit y of Conjugate, PCV13 00:00:00 [facility] dical (Prevnar 13) Branch Pneumococcal 13 2017-02-11 Completed Universit y of Conjugate, PCV13 00:00:00 [facility] dical (Prevnar 13) Branch Pneumococcal 13 2017-02-11 Completed Universit y of Conjugate, PCV13 00:00:00 [facility] dical (Prevnar 13) Branch Pneumococcal 13 2017-02-11 Completed Universit y of Conjugate, PCV13 00:00:00 [facility] dical (Prevnar 13) Branch Pneumococcal 13 2017-02-11 Completed Universit y of Conjugate, PCV13 00:00:00 [facility] dical (Prevnar 13) Branch Pneumococcal 13 2017-02-11 Completed Universit y of Conjugate, PCV13 00:00:00 [facility] dical (Prevnar 13) Branch Influenza Virus 2012-05-03 Completed Universit y of Vaccine 00:00:00 [facility] Influenza Virus 2012-05-03 Completed Universit y of Vaccine 00:00:00 [facility] Influenza Virus 2012-05-03 Completed Universit y of Vaccine 00:00:00 [facility] Influenza Virus 2012-05-03 Completed Universit y of Vaccine 00:00:00 [facility] Influenza Virus 2012-05-03 Completed Universit y of Vaccine 00:00:00 [facility] Influenza Virus 2012-05-03 Completed Universit y of Vaccine 00:00:00 [facility] Influenza Virus 2012-05-03 Completed Universit y of Vaccine 00:00:00 [facility] Zoster(Zostavax)( 2008-03-26 Completed Unive rsity of ingles) 00:00:00 [facility] Zoster(Zostavax)( 2008-03-26 Completed Unive rsity of ingles) 00:00:00 [facility] Zoster(Zostavax)( 2008-03-26 Completed Unive rsity of ingles) 00:00:00 [facility] Zoster(Zostavax)( 2008-03-26 Completed Unive rsity of ingles) 00:00:00 [facility] Zoster(Zostavax)( 2008-03-26 Completed Unive rsity of ingles) 00:00:00 [facility] Zoster(Zostavax)( 2008-03-26 Completed Unive rsity of ingles) 00:00:00 [facility] Zoster(Zostavax)( 2008-03-26 Completed Unive rsity of ingles) 00:00:00 [facility] Influenza Virus 1999-12-16 Completed Universit y of Vaccine - Whole 00:00:00 [facility] Influenza Virus 1999-12-16 Completed Universit y of Vaccine - Whole 00:00:00 [facility] Influenza Virus 1999-12-16 Completed Universit y of Vaccine - Whole 00:00:00 [facility] Influenza Virus 1999-12-16 Completed Universit y of Vaccine - Whole 00:00:00 [facility] Influenza Virus 1999-12-16 Completed Universit y of Vaccine - Whole 00:00:00 [facility] Influenza Virus 1999-12-16 Completed Universit y of Vaccine - Whole 00:00:00 [facility] Influenza Virus 1999-12-16 Completed Universit y of Vaccine - Whole 00:00:00 [facility] Vital Signs Vital Name Observation Time Observation Value Comments Source Systolic blood 2021-10-14 22:34:00 156 mm[Hg] Univer sity of pressure [facility] Diastolic blood 2021-10-14 22:34:00 70 mm[Hg] Unive rsity of pressure [place] [facility] Heart rate 2021-10-14 22:34:00 54 /min Universi ty of [place] [facility] Body temperature 2021-10-14 22:34:00 36.33 [place] Univ ersity of [place] [facility] Respiratory rate 2021-10-14 22:34:00 18 /min Univ ersity of [place] [facility] Oxygen saturation in 2021-10-14 22:34:00 96 /min University of Arterial blood by [place] [facility] katelin Pulse oximetry Branch Body height 2021-10-14 21:28:00 190.5 cm Universi ty of [place] [facility] Body weight 2021-10-14 21:28:00 113.399 kg Universi ty of [place] [facility] BMI 2021-10-14 21:28:00 31.25 kg/m2 Universi ty of [place] [facility] Systolic blood 2021-10-13 22:34:00 148 mm[Hg] Univer sity of pressure [place] [facility] Diastolic blood 2021-10-13 22:34:00 81 mm[Hg] Unive rsity of pressure [place] [facility] Heart rate 2021-10-13 22:31:00 61 [...] 96 /min University of Arterial blood by [place] [facility] kat[place] Pulse oximetry Branch Systolic blood 2021-06-14 18:39:00 153 mm[Hg] Univer sity of pressure [place] [facility] Diastolic blood 2021-06-14 18:39:00 81 mm[Hg] Unive rsity of pressure [place] [facility] Heart rate 2021-06-14 18:39:00 59 /min Universi ty of [place] [facility] Body temperature 2021-06-14 18:39:00 36.44 [place] Univ ersity of [place] [facility] Respiratory rate 2021-06-14 18:39:00 16 /min [facility] Body height 2021-06-14 18:39:00 190.5 cm [facility] Body weight 2021-06-14 18:39:00 108.863 kg [facility] BMI 2021-06-14 18:39:00 30.00 kg/m2 [facility] Oxygen saturation in 2021-06-14 18:39:00 96 /min University of Arterial blood by [facility] Pulse oximetry Branch Systolic blood 2020-10-02 16:46:00 142 mm[Hg] Univer sity of pressure [facility] Diastolic blood 2020-10-02 16:46:00 71 mm[Hg] Unive [facility] Heart rate 2020-10-02 16:46:00 60 /min [facility] Body temperature 2020-10-02 16:45:00 35.67 [place] [facility] Respiratory rate 2020-10-02 16:45:00 22 /min [facility] Oxygen saturation in 2020-10-02 16:45:00 96 /min [place] of Arterial blood by [facility] Pulse oximetry Branch Body height 2020-09-30 04:45:00 190.5 cm [facility] Body weight 2020-09-30 04:45:00 107.5 kg [facility] BMI 2020-09-30 04:45:00 29.62 kg/m2 [facility] Procedures Procedure Date / Time Performing Clinician Source Performed POCT SARS-COV-2 ANTIGEN 2021-10-13 22:32:00 Luis Felipe Green [facility] (BINAX NOW) [facility] CONSENT/REFUSAL FOR 2021-10-13 22:22:33 Doctor Unassigned, Unive [facility] DIAGNOSIS AND TREATMENT [place] [facility] ASSIGNMENT OF BENEFITS 2021-10-13 22:22:18 Doctor Unassigned, Un [facility] DIRECTIVE TO PHYSICIAN 2020-10-11 05:01:00 Doctor [facility]assigned, Un [facility] [place] [facility] BLOOD CULTURE SCREEN 2020-10-02 00:48:00 Tolu Garcia [facility] BLOOD CULTURE SCREEN 2020-10-01 22:16:00 Angi Page [facility] Malena [facility] MAGNESIUM 2020-10-01 06:57:00 [facility] BASIC METABOLIC PANEL 2020-10-01 06:57:00 [facility] (NA, K, CL, CO2, GLUCOSE, Medica l Branch BUN, CREATININE, CA) CBC WITH DIFF 2020-10-01 06:57:00 [facility] LACTIC ACID WHOLE BLOOD 2020-09-30 09:00:00 Molly [facility] BASIC METABOLIC PANEL 2020-09-30 08:33:00 Molly [facility] (NA, K, CL, CO2, GLUCOSE, Medica l Branch BUN, CREATININE, CA) CBC WITHOUT DIFF 2020-09-30 08:33:00 Molly [facility] PROCALCITONIN 2020-09-30 08:33:00 Grant Wilson [facility] MRSA / MSSA SCREEN BY 2020-09-30 04:14:00 Barnes [facility] CRITICAL CARE 2020-09-29 21:50:06 Antonio Davey [facility] URINE DRUG (IMMUNOASSAY) 2020-09-29 20:27:00 Antonio Davey [facility] SCREEN CT ABDOMEN PELVIS W 2020-09-29 20:05:40 Antonio Davey [facility] CONTRAST [facility] XR CHEST 1 VW 2020-09-29 18:43:12 Antonio Davey [facility] POCT GLUCOSE (AUTOMATED) 2020-09-29 18:42:00 Antonio Davey [facility] CT HEAD WO CONTRAST 2020-09-29 17:54:13 Antonio Davey [facility] BLOOD CULTURE SCREEN 2020-09-29 17:38:00 Antonio Davey [facility] LIPASE 2020-09-29 17:38:00 Antonio Davey [facility] AMMONIA, PLASMA 2020-09-29 17:38:00 Antonio Davey [facility] TROPONIN I 2020-09-29 17:38:00 Antonio Davey [facility] FREE T4 2020-09-29 17:38:00 Antonio Davey [facility] THYROID STIMULATING 2020-09-29 17:38:00 Antonio Davey [facility] HORMONE [facility] COMP. METABOLIC PANEL 2020-09-29 17:38:00 Antonio Davey [facility] ([id number]) Medical Branch ETHANOL 2020-09-29 17:38:00 Antonio Davey [facility] CBC WITH DIFF 2020-09-29 17:38:00 Antonio Davey [facility] PROTHROMBIN TIME / INR 2020-09-29 17:38:00 Antonio Davey [facility] ACTIVATED PARTIAL 2020-09-29 17:38:00 Antonio Davey [facility] THRMPLAS SANDY [facility] URINALYSIS 2020-09-29 17:38:00 Antonio Davey [facility] URINE CULTURE 2020-09-29 17:38:00 Antonio Davey [facility] N-TERMINAL PRO-BNP 2020-09-29 17:38:00 Antonio Davey [facility] BLOOD CULTURE WORKUP 2020-09-29 17:38:00 Antonio Davey [facility] ADC, CLC OR LCC ONLY - 2020-09-29 17:38:00 [facility] RSV [facility] AC PANEL 21 + LACTIC ACID 2020-09-29 17:38:00 [facility] 2020-09-29 17:38:00 Antonio Davey [facility] PATHOGENS DNA [facility] PROBE-ANAEROBIC COVID-19 (ID NOW RAPID 2020-09-29 17:38:00 [facility] TESTING) Medical Branch LAB ONLY COVID 2020-09-29 17:38:00 Antonio Davey [facility] INTERPRETATION [facility] NOTICE OF PRIVACY 2020-09-29 17:17:05 Doctor Unassigned, [facility] PRACTICES [facility] CONSENT/REFUSAL FOR 2020-09-29 17:16:39 Doctor Mahoganysssofia [facility] DIAGNOSIS AND TREATMENT [facility] AUTHORIZATION FOR RELEASE 2019-08-05 05:01:00 Doctor Diya, [facility] Encounters Start End Encounter Admission Attending Care Care Encounter Source Date/Time Date/Time Type Type Clinicians Facility Department ID 2021-10-14 2021-10-14 Nurse Therapy, Adc Covid Infusion [facility] 1.2.840.114 [id number] Univers 16:00:00 17:00:00 Visit Jayda Harden 350.1.13.10 it[place] [id number] [place] [id number] Branch 2021-10-14 2021-10-14 Outpatient R KRISH [facility] [id number] Univers 16:00:00 16:00:00 JAYDA [facility] 2021-10-13 2021-10-13 Urgent AlvaradooanhRuiz [facility] 1..840.114 [id number] Univers 17:40:00 18:00:00 Yolis Green [place] 350.1.13.10 ity of [place] 4.2.7.2.686 Taj as GEORGIE?BLEA [id number] [address] MEDICAL OFFICE BUILDING 2021-10-13 2021-10-13 Outpatient William GREEN [facility] [id number] Univers 17:40:00 17:59:04 LUIS FELIPE [facility] 2021-10-13 2021-10-13 Orders Doctor RIVERA 1..840.114 [id number] Univers 00:00:00 00:00:00 Only UnassignedJOSE CRUZ 350.1.13.10 ity of [facility] 4.2.7.2.686 Taj as [id number] [address] 2021-06-14 2021-06-14 Urgent Bulmaro Chagomary [facility] 1.2 .840.114 [id number] Univers 14:00:00 14:00:00 Yolis Green Luis Felipe HEALTH 350.1.13.10 ity of [place] 4.2.7.2.686 Taj as GEORGIE?BLEA [id number] Ny candis MARIBEL [address] [place] [address] MEDICAL OFFICE BUILDING 2021-06-14 2021-06-14 Outpatient R PETER [facility] [id number] Univers 14:00:00 13:56:12 LUIS FELIPE [facility] 2020-10-11 2020-10-11 Orders Doctor RIVERA 1.2.840.114 [id number] Univers 00:00:00 00:00:00 Only Unassigned, JOSE CRUZ 350.1.13.10 ity of [facility] 4.2.7.2.686 Taj as [id number] [facility] 009 Branch 2020-10-03 2020-10-03 Transition Nav Gordon 1.2.840.114 [id number] Univers 00:00:00 00:00:00 of Care Jaycee Tomy 350.1.13.10 it [place] of [place] [id number] [facility] 403 Branch 2020-09-29 2020-10-02 Hospital Antonio Davey 1.2.840.1 14 [id number] Univers 12:19:00 14:50:00 Encounter Mark Anthony Ghotra 350.1.13. 10 ity of [place], [facility] 4.2.7.2.686 [place] Concha Azul [id number] [address] 2020-09-29 2020-09-29 Emergency [facility] [id number] Univers 12:14:00 12:14:00 ANTONIO [facility] 2019-08-05 2019-08-05 Orders Doctor RIVERA 1.2.840.114 [id number] 00:00:00 00:00:00 Only Unassigned, JOSE CRUZ 350.1.13.10 [facility] 4.2.7.2.686 [id number] 009 2019-08-05 2019-08-05 Orders Doctor RIVERA 1.2.840.114 [id number] Univers 00:00:00 00:00:00 Only Unassigned, JOSE CRUZ 350.1.13.10 ity of [facility] 4.2.7.2.686 Taj as [id number] [address] 2019-07-09 2019-07-09 Emergency X JOE, [facility] ERT [id number] Univers 10:36:38 13:39:00 ANTONIO north [facility] Results Test Description Test Time Test Comments Results Result Comments Source POCT SARS-COV-2 ANTIGEN (BINAX NOW) 2021-10-13 22:47:00 Test Item Value Reference Range Interpretation Comme nts POCT SARS-COV-2 ANTIGEN (test code = 5076) Positive Not Detecte d A On board controls acceptable with C Line (test code = 3574) Yes Lab Interpretation (test code = 64032-7) [facility]normal [facility] - Peripheral # [id number] 14:27:04 Test Item Value Reference Range Interpretation Comments Blood Culture-Aerobic No organisms No growth Previo us (test code = 37558-9) isolated prelim inary verified result was Culture In Progress on 09/29/2020 at 17 01 CDTPrevious preliminary verified result was No growth a t 24 hours on 09/30/2020 at 14 15 CDT Blood Culture positive. No growth AA Previous Culture-Anaerobic See Blood Culture preli minary (test code = 30780-6) Workup for verifi ed result additional was Culture In information. Progress on 09/29/2020 at 17 01 CDTPrevious preliminary verified result was No growth a t 24 hours on 09/30/2020 at 14 01 CDT Lab Interpretation Abnormal (test code = 47547-5) [facility] [id number] 14:26:54 Test Item Value Reference Range Interpretation Comments Blood Culture Coagulase negative Organism identified Workup (test Staphylococcus by DNA code = 600-7) probeAdditiona l work-up perform ed only per reques t. Culture plate(s ) will be saved until this date: - 10/07/20 Gram stain Gram positive cocci Anaerobi c Bottle (test code = 664-3) [facility] PAN[facility] (NA, K, CL, CO2, GLUCOSE, BUN, CREATININE, CA)2020-10-01 07:27:37 Test Item Value Reference Range Interpretation Comments NA (test code = 135 mmol/L 135-145 4853694568) K (test code = 3.7 mmol/L 3.5-5.0 5651816196) CL (test code = 108 mmol/L 98-108 8082674410) CO2 TOTAL (test code = 23 mmol/L 23-31 9800556001) AGAP (test code = 2-16 4501234287) BUN (test code = 16 mg/dL 7-23 9793819836) GLUCOSE (test code = 103 mg/dL 70-110 0523932457) CREATININE (test code = 0.51 mg/dL 0.60-1.25 L 5163113321) CALCIUM (test code = 8.4 mg/dL 8.6-10.6 L 8365948343) eGFR (test code = mL/min/1.73m2 3021083977) JEAN MARIE (test code = JEAN MARIE) [...] tests). Lab Interpretation Abnormal (test code = 09925-3) [facility] Test Item Value Reference Range Interpretation Comments MAGNESIUM (test code = 8913140310) 2.0 mg/dL 1.7-2.4 Lab Interpretation (test code = Normal 46498-9) [facility] WITH [id number] 07:05:54 Test Item Value Reference Range Interpretation [...] RDW-SD (test code = 45.0 fL 38.5-51.6 09909-7) RDW-CV (test code = 13.3 % 12.1-15.4 788-0) PLT (test code = See_Comment [Automated 777-3) message] The system which generated this result transmit donn reference range : 150 - 328 10*3/ ?L. The reference range was not u sed to interpret th is result as normal/abnormal . MPV (test code = 10.4 fL 9.8-13.0 06293-1) NRBC/100 WBC (test See_Comment [Automat ed code = 6584480683) message] The system which generated this result transmit donn reference range : 0.0 - 10.0 /100 WBCs. The reference range was not used to interpret this result as normal/abnormal . NRBC x10^3 (test code <0.01 See_Comment [Auto mated = 6755659346) message] The system which generated this result transmit donn reference range : 10*3/?L. The reference range was not used to interpret this result as normal/abnormal . GRAN MAT (NEUT) % 83.1 % (test code = 770-8) IMM GRAN % (test code 0.60 % = 5333984397) LYMPH % (test code = 9.0 % 736-9) MONO % (test code = 6.7 % 5905-5) EOS % (test code = 0.3 % 713-8) BASO % (test code = 0.3 % 706-2) GRAN MAT x10^3(ANC) 10.41 10*3/uL 1.99-6.95 H (test code = 7184821047) IMM GRAN x10^3 (test 0.07 10*3/uL 0.00-0.06 H code = 3703799997) LYMPH x10^3 (test code 1.13 10*3/uL 1.09-3.23 = 731-0) MONO x10^3 (test code 0.84 10*3/uL 0.36-1.02 = 742-7) EOS x10^3 (test code = 0.04 10*3/uL 0.06-0.53 L 711-2) BASO x10^3 (test code 0.04 10*3/uL 0.01-0.09 = 704-7) Lab Interpretation Abnormal (test code = 85252-5) [facility] B[facility] PATHOGENS DNA [id number] 02:15:10 Test Item Value Reference Range Interpretation Comments Coagulase Negative Positive Negative, See A Staphylococcus (test Comment/Narrative code = 53420-2) JEAN MARIE (test code = JEAN MARIE) [...] contact the Antimicrobial Stewardship Program with questions.Pager: ?[phone] Testing included eleven identification and three resistance marker targets. Lab Interpretation Abnormal (test code = 24021-3) [facility] RenaissanceMRSA / MSSA Screen by PCR, [id number] 19:07:08 Test Item Value Reference Range Interpretation Comments MSSA Screen by PCR, Nares (test code Negative Negative = 09216-9) MRSA/MSSA Positive? (test code = No No 1514899534) Lab Interpretation (test code = Normal 65114-9) [facility] COVID [id number] 15:40:48COVID DMT InterpretationInterpretation/Recommendations:Molecular NAAT Tests for Active [...] COVID-19 testing the patient has had at [facility], including molecular NAAT testing (more commonly known as PCRtesting and Rapid ID Now testing) and antibody testing. It does not take into account any testing that a patient has had outside of the [facility] medical record. [facility] LABORATORY SERVICESCOVID MdoxywvWPRM-WkI-5 Rapid ID NOW (no units) ? ? Date ? Value ? 09/29/2020 ?Not Detected ? [facility] LABORATORY SERVICESUnPeterson Regional Medical CenterPROCALCITONIN2021-07-19 10:18:36 Test Item Value Reference Range Interpretation Comments Procalcitonin (test 5.32 ng/mL <0.07 H code = 5103273744) JEAN MARIE (test code = JEAN MARIE) [...] lung abscess/empyema. For further information please refer to:[email or web address] Lab Interpretation Abnormal (test code = 85273-3) [facility] (NA, K, CL, CO2, GLUCOSE, BUN, CREATININE, CA)2020-09-30 09:33:51 Test Item Value Reference Range Interpretation Comments NA (test code = 137 mmol/L 135-145 7303022018) K (test code = 3.3 mmol/L 3.5-5.0 L 5669798670) CL (test code = 110 mmol/L 98-108 H 7262241068) CO2 TOTAL (test code = 24 mmol/L 23-31 6172195006) AGAP (test code = 2-16 5124579839) BUN (test code = 18 mg/dL 7-23 1675765713) GLUCOSE (test code = 100 mg/dL 70-110 9411823509) CREATININE (test code = 0.52 mg/dL 0.60-1.25 L 4532854166) CALCIUM (test code = 8.3 mg/dL 8.6-10.6 L 9248633286) eGFR (test code = mL/min/1.73m2 0623847125) JEAN MARIE (test code = JEAN MARIE) [...] tests). Lab Interpretation Abnormal (test code = 91226-0) [facility] WITHOUT [id number] 09:10:31 Test Item Value Reference Range Interpretation Comments WBC (test code = 6690-2) See_Comment H [A utomated message] The system EVault generated this result transmit donn reference range : 4.20 - 10.70 10*3/?L. The reference range was not used to interpret this result as normal/abnormal . RBC (test code = 789-8) See_Comment L [Au tomated message] The system [employer] generated this result transmit donn reference range [...] 777-3) See_Comment [Au tomated message] The system [employer] generated this result transmit donn reference range : 150 - 328 10*3/?L. The reference range was not used to interpret this result as normal/abnormal . MPV (test code = 10.3 fL 9.8-13.0 38113-2) RDW-CV (test code = 13.5 % 12.1-15.4 788-0) RDW-SD (test code = 45.3 fL 38.5-51.6 32048-2) NRBC x10^3 (test code = <0.01 See_Comment [Au tomated message] 4451560271) The system [employer]ault generated this result transmit donn reference range : 10*3/?L. The reference range was not used to interpret this result as normal/abnormal . NRBC/100 WBC (test code See_Comment [Au tomated message] = 0180642217) The system [facility] generated this result transmit donn reference range : 0.0 - 10.0 /100 WBC s. The reference r branden was not used to interpret this result as normal/abnormal . IPF % (test code = 6709892362) Lab Interpretation (test Abnormal code = 44081-2) [facility] RenaissanceL[facility] Acid Whole [id number] 09:06:02 Test Item Value Reference Range Interpretation Comments LACTIC ACID (test code = 1.66 mmol/L 0.50-2.20 0977791155) Lab Interpretation (test code = Normal 90267-1) [facility] RenaissanceCritical [id number] 21:50:06Antonio Davey MD ? ? 09/29/2020 ?4:50 [...] development of treatment plan with patient or surrogateUnPeterson Regional Medical CenterURINE DRUG (IMMUNOASSAY) - COMPREHENSIVE DRUG [id number] 21:20:09 Test Item Value Reference Range Interpretation Comments AMPHET (test code = Negative Negative 4209490773) TED U (test code = Negative Negative 9782576804) BENZO U (test code = Negative Negative 7847561720) Cocaine Metabolite (test Negative Negative code = 8018683138) METHADONE (test code = Negative Negative 5366204813) OPIATES (test code = Negative Negative 1287246430) PCP (test code = Negative Negative 2645549129) THC (test code = Negative Negative 1369127727) JEAN MARIE (test code = JEAN MARIE) [...] testing). Lab Interpretation (test Normal code = 68305-9) [facility] RenaissanceCT ABDOMEN PELVIS W [id number] 20:45:55 1. Small, mildly complex cyst suggested [...] bladdermass 8. Prostate gland enlargement RL: 2601 AFC:[id number] WITH INTRAVENOUS CONTRAST.CLINICAL [...] the L4 and L5 vertebral bodies, respectively. [facility],Radiant Results Inft User - 09/29/2020 3:47 PM [...] to exclude possible bladdermass8. Prostate gland enlargementRL: [id number]:[id number] signed by Kevan Mary MD at 09/29/2020 3:45 PM [facility] RenaissanceXR CHEST 1 [id number] 19:20:37 Heart size is upper limits of normal. Calcific atheromatous changes in theaortic arch. Multiple external monitoring leads overlie the patient. Ventricular-peritoneal tubing overlies the right side of the neck andchest. No pneumothorax, pulmonary edema or pleural effusion. There are ill-defined, interstitial and groundglass opacities noted in themid and lower lung zones which may represent regions of early or atypicalpneumonia. RL: 2601 AFC:38458 Chest, one view History: ?pneumonia Ordering Physician: Chai DAVEY Comparison: None [facility], Radiant Results Inft User - 09/29/2020 2:21 PM CDTFormatting of this note might be different fromthe original.Chest, one viewHistory: pneumonia Ordering Physician: Chai DAVEYComparison: NoneIMPRESSIONHeart size is upper limits of normal. Calcific atheromatous changes in theaortic arch. Multiple external monitoring leads overlie the patient.Ventricular-peritoneal tubing overlies the right side of the neck andchest.No pneumothorax, pulmonary edema or pleural effusion.There are ill-defined, interstitial and groundglass opacities noted in themid and lower lung zones which may represent regions of early or atypicalpneumonia.RL: 2601AFC:[id number] signed by Kevan Mary MD at 09/29/2020 2:20 PM [facility] RenaissanceCOMP. METABOLIC PANEL (68319)2020-09-29 19:13:44 Test Item Value Reference Range Interpretation Comments NA (test code = 139 mmol/L 135-145 1262849556) K (test code = 3.9 mmol/L 3.5-5.0 3917653227) CL (test code = 107 mmol/L 98-108 4754586026) CO2 TOTAL (test code = 22 mmol/L 23-31 L 4383667446) AGAP (test code = 2-16 8046904880) BUN (test code = 22 mg/dL 7-23 5155023519) GLUCOSE (test code = 128 mg/dL 70-110 H 4129915462) CREATININE (test code = 0.70 mg/dL 0.60-1.25 4559930024) TOTAL BILI (test code = 0.8 mg/dL 0.1-1.1 5552947284) CALCIUM (test code = 9.6 mg/dL 8.6-10.6 6749534608) T PROTEIN (test code = 6.5 g/dL 6.3-8.2 8942148851) ALBUMIN (test code = 3.7 g/dL 3.5-5.0 1785173477) ALK PHOS (test code = 99 U/L 34-122 4736661107) ALTv (test code = 19 U/L 5-50 2-6) AST(SGOT) (test code = 25 U/L 13-40 0445550023) eGFR (test code = mL/min/1.73m2 2048353824) JEAN MARIE (test code = JEAN MARIE) [...] tests). Lab Interpretation Abnormal (test code = 20129-7) [facility] RenaissanceTHYROID STIMULATING [id number] 19:02:26 Test Item Value Reference Range Interpretation Comments TSH (test code = See_Comment [Automated message] 2461912217) The system EVault generated this result transmitted ref erence range: 0.45 - 4 .70 mIU/L. The refe rence range was not u sed to interpret this result as normal/abnor mal. Lab Interpretation (test Normal code = 77133-5) [facility] acute hospital OR C [id number] 18:53:49 Test Item Value Reference Range Interpretation Comments RSV Antigen (test code = Negative Negative 9809939870) JEAN MARIE (test code = JEAN MARIE) Performed on IDNow. Lab Interpretation (test Normal code = 56916-5) [facility] RenaissanceFREE [id number] 18:49:45 Test Item Value Reference Range Interpretation Comments FREE T4 (test code = See_Comment [Autom ated message] 0221755621) The system [employer] generated this result transmitted ref erence range: 0.78 - 2 .20 ng/dL:. The ref erence range was not u sed to interpret this result as normal/abnor mal. Lab Interpretation (test Normal code = 35509-9) [facility] RenaissanceCOVID-[facility] (ID NOW RAPID TESTING)2020-09-29 18:49:25 Test Item Value Reference Range Interpretation Comments SARS-CoV-2 Rapid ID NOW Not Detected Not Detected (test code = 02249-2) JEAN MARIE (test code = JEAN MARIE) ID NOW COVID-19 Assay is an isothermal nucleic acid amplification test intended for the qualitative detection of nucleic acid from SARS-CoV-2 viral RNA in nasopharyngeal (MOLD MAKING SUPERVISOR) specimens. It is used under Emergency Use [...] indicated. Lab Interpretation Normal (test code = 57399-1) [facility] RenaissancePOCT GLUCOSE (AUTOMATED)2020-09-29 18:45:17 Test Item Value Reference Range Interpretation Comments POCT GLU (test code = 6269442329) 112 mg/dL 70-110 H Lab Interpretation (test code = Abnormal 51484-7) [facility] RenaissanceTROPONIN [id number] 18:44:27 Test Item Value Reference Interpretation Comments Range TROPONIN I (test 0.018 ng/mL See_Comment [Automated code = 1369824534) message] The system which generated this result [...] biotin. Lab Interpretation Normal (test code = 26530-2) [facility] RenaissanceLIPASE2021-07-18 18:41:25 Test Item Value Reference Range Interpretation Comments LIPASE (test code = 7797822262) 19 U/L 0-220 Lab Interpretation (test code = Normal 70774-0) [facility] RenaissanceN-TERMINAL [id number] 18:41:25 Test Item Value Reference Range Interpretation Comments NT-proBNP (test code 1010 pg/mL See_Comment H [Autom ated = 9125540146) message] The system which generated this result transmitted reference range : <=450. The reference range was not used to interpret this result as normal/abnormal . JEAN MARIE (test code = JEAN MARIE) Biotin has been reported to cause a negative bias, interpret results relative to patient's use of biotin. Lab Interpretation Abnormal (test code = 75806-8) [facility] RenaissanceETHANOL2021-07-18 18:36:48 Test Item Value Reference Range Interpretation Comments ALCOHOL (test code = <10 mg/dL 5644882715) JEAN MARIE (test code = JEAN MARIE) <10 Ygyxcedv06-241 Toxic>100 Depression of STENCIL PRINTER>400 Fatalities Reported [facility] WITH [id number] 18:24:29 Test Item Value Reference Range Interpretation Comments WBC (test code = See_Comment H [Automated 9882-2) message] The system which generated this result transmit donn reference range : 4.20 - 10.70 10*3/?L. The reference range was not used to interpret this result as normal/abnormal . RBC (test code = See_Comment [Automated 159-8) message] The system which generated this result [...] RDW-SD (test code = 44.9 fL 38.5-51.6 20826-0) RDW-CV (test code = 13.2 % 12.1-15.4 788-0) PLT (test code = See_Comment [Automated 777-3) message] The system which generated this result transmit donn reference range : 150 - 328 10*3/ ?L. The reference range was not u sed to interpret th is result as normal/abnormal . MPV (test code = 10.3 fL 9.8-13.0 46440-7) NRBC/100 WBC (test See_Comment [Automat ed code = 1488356153) message] The system which generated this result transmit donn reference range : 0.0 - 10.0 /100 WBCs. The reference range was not used to interpret this result as normal/abnormal . NRBC x10^3 (test code <0.01 See_Comment [Auto mated = 1705520579) message] The system which generated this result transmit donn reference range : 10*3/?L. The reference range was not used to interpret this result as normal/abnormal . GRAN MAT (NEUT) % 89.7 % (test code = 770-8) IMM GRAN % (test code 0.80 % = 7422825022) LYMPH % (test code = 2.8 % 736-9) MONO % (test code = 6.4 % 5905-5) EOS % (test code = 0.0 % 713-8) BASO % (test code = 0.3 % 706-2) GRAN MAT x10^3(ANC) 16.90 10*3/uL 1.99-6.95 H (test code = 6381167708) IMM GRAN x10^3 (test 0.15 10*3/uL 0.00-0.06 H code = 8439425047) LYMPH x10^3 (test code 0.53 10*3/uL 1.09-3.23 L = 731-0) MONO x10^3 (test code 1.21 10*3/uL 0.36-1.02 H = 742-7) EOS x10^3 (test code = <0.03 0.06-0.53 L 711-2) BASO x10^3 (test code 0.05 10*3/uL 0.01-0.09 = 704-7) Lab Interpretation Abnormal (test code = 70340-7) [facility] [id number] 18:10:31 Test Item Value Reference Range Interpretation Comments AMMONIA (test code = 8546485216) <9 9-33 L Lab Interpretation (test code = Abnormal 23106-5) [facility] [id number] 18:07:52 Within the limitations of motion artifact, [...] no acute findings. Stable headCT [facility] 18:05:27 Test Item Value Reference Range Interpretation Comments APPEARANCE (test code = Hazy Clear A 3678006191) COLOR (test code = Yellow Yellow 5356772017) PH (test code = 4.8-8.0 9147838383) SP GRAVITY (test code = 1.003-1.030 7860178735) GLU U QUAL (test code = Normal Normal 1002243062) BLOOD (test code = 2+ Negative A 2455456340) KETONES (test code = Negative Negative 3807430769) PROTEIN (test code = 30 mg/dL Negative A 2887-8) UROBILIN (test code = Normal Normal 3438117472) BILIRUBIN (test code = Negative Negative 5723456991) NITRITE (test code = Negative Negative 2372721549) LEUK KENDALL (test code = 25/uL Negative A 9017282187) RBC/HPF (test code = See_Comment H [Autom ated message] 4941613789) The system [employer] generated this result transmitted ref erence range: 0 - 3 HP F. The reference range was not used to int erpret this result as normal/abnormal . WBC/HPF (test code = See_Comment H [Autom ated message] 8434379947) The system [employer] generated this result transmitted ref erence range: 0 - 5 HP F. The reference range was not used to int erpret this result as normal/abnormal . BACTERIA (test code = Few Negative A 4626739205) MUCOUS (test code = Slight Negative LPF A 1532010675) HYAL CAST (test code = See_Comment [Aut omated message] 0604199758) The system [employer] generated this result transmitted ref erence range: <=2 LPF. The reference range was not used to int erpret this result as normal/abnormal . Lab Interpretation (test Abnormal code = 32052-7) [facility] [id number] 17:59:02 Test Item Value Reference Range Interpretation Comments APTT Patient (test See_Comment [Automat ed code = 3173-2) message] The system which generated this result transmitted reference range : 23 - 38 Seconds . The reference range was not used to interpr et this result as normal/abnormal . JEAN MARIE (test code = JEAN MARIE) The [facility] patient population mean normal value for aPTT is 30 seconds. Lab Interpretation Normal (test code = 55027-9) [facility] / [id number] 17:57:01 Test Item Value Reference Range Interpretation Comments PROTIME PATIENT (test See_Comment [Auto mated message] code = 5964-2) The system [facility] generated this result transmitted ref erence range: 12.0 - 1 4.7 Seconds. The re ference range was not u sed to interpret this result as normal/abnor mal. INR (test code = 6301-6) Nor mal INR <1.1; Warfarin Therap eutic range 2.0 to 3. 0 or 2.5 to 3.5, dep ending upon the indica tions. Lab Interpretation (test Normal code = 85707-6) [facility] 21 + LACTIC [id number] 17:48:56 Test Item Value Reference Range Interpretation Comments PH (test code = 7.32-7.42 H [id number]) PCO2 MAGGIE (test code = See_Comment L [Auto mated [id number]) message] The sy stem which generated this result transmitted reference range : 41 - 51 mmHg. The reference range was not used to interpret this result as normal/abnormal . PO2 MAGGIE (test code = See_Comment H [Autom ated 8921308029) message] The sy stem which generated this result transmitted reference range : 25 - 40 mmHg. The reference range was not used to interpret this result as normal/abnormal . HCO3 MAGGIE (test code = See_Comment L [Auto mated 5333598222) message] The sy stem which generated this result transmitted reference range : 24 - 28 mEq/L. The reference range was not used to interpret this result as normal/abnormal . AC VBE(BEAKER) (test mEq/L code = 0969282678) THB MAGGIE (test code = 14.7 g/dL 13.5-18.0 1792036770) %O2HB MAGGIE (test code = 89.5 % 52.0-63.0 H 2915353251) %COHB MAGGIE (test code = 1.0 % 0.0-1.5 5415640370) %METHB MAGGIE (test code = 0.3 % 0.4-1.5 L 0648233156) VOL%O2 MAGGIE (test code = 18.5 % 6.0-12.0 H 4638266159) NA (test code = 137 mmol/L 135-145 8109334058) K+ (test code = 4.4 mmol/L 3.5-5.0 1285896504) AC CA IONZ (test code = 4.20 mg/dL 4.50-5.30 L 1273285244) GLUCOSE (test code = 134 mg/dL 70-110 H 3944364648) LACTIC ACID (test code 2.78 mmol/L 0.50-2.20 H = 7799971529) Lab Interpretation Abnormal (test code = 66026-3) [facility]"
--- NOTE | 2022-10-30 11:35 | RAD REPORT ---
EXAM DESCRIPTION: RAD - Shoulder Left 2 View - 10/30/2022 11:28 am CLINICAL HISTORY: PAIN COMPARISON: No comparisons FINDINGS/IMPRESSION: No acute fracture. No malalignment. Mild to moderate left AC joint and glenohum eral joint degenerative changes.
--- NOTE | 2022-10-30 11:40 | ER ---
Nurse's Notes [facility] Name: Rajendra Collado Age: 81 yrs Sex: Male : 1940 Arrival Date: 10/30/2022 Time: 10:56 Bed 16 Private MD: Diagnosis: Pain in left shoulder;Unspecified symptoms and signs involving the musculoskeletal system;Dementia in other diseases classified elsewhere without behavioral disturbance Presentation: 10/30 11:11 Chief complaint: Patient states: L shoulder pain x "a couple days". ss 11:20 Coronavirus screen: Client denies travel out of the [place] in the last 14 days. Ebola ss Screen: Patient denies exposure to infectious person. Patient denies travel to an Ebola-affected area in the 21 days before illness onset. Initial Sepsis Screen: Does the patient meet any 2 criteria? No. Patient's initial sepsis screen is negative. Does the patient have a suspected source of infection? No. Patient's initial sepsis screen is negative. Risk Assessment: Do you want to hurt yourself or someone else? Patient reports no desire to harm self or others. Onset of symptoms was October 27, 2022. 11:20 Method Of Arrival: Wheelchair ss 11:20 Acuity: CHRIS 3 ss Triage Assessment: 11:26 General: Appears in no apparent distress. comfortable, well groomed, Behavior is calm, ml4 cooperative, PMH parkinsons. Pain:. 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 - Social history:: Smoking status: Patient denies any tobacco usage or history of. Patient/guardian denies using alcohol, street drugs, IV drugs. - Family history:: not pertinent. Screenin:30 [facility] ED Fall Risk Assessment (Adult) History of falling in the last 3 months, ml4 including since admission No falls in past 3 months (0 pts) Confusion or Disorientation Yes (5 pts) Intoxicated or Sedated No (0 pts) Impaired Gait Yes (1 pt) Mobility Assist Device Used No (0 pt) Altered Elimination No (0 pt) Score/Fall Risk Level 3 or more points = High Risk Oriented to surroundings, Maintained a safe environment, Educated pt \\T\\ family on fall prevention, incl call for assistance when getting out of bed, Assessed \\T\\ reinforced patient's understanding of fall precautions, Provided non-skid footwear, Apply high fall risk patient identification: yellow non skid footwear/ fall signage, Utilized family, sitter, or virtual forestry support specialist as indicated. Abuse screen: Denies threats or abuse. Nutritional screening: No deficits noted. Tuberculosis screening: No symptoms or risk factors identified. Assessment: 11:20 Reassessment: XRAY at bedside obtaining images. ss 11:30 Musculoskeletal: No deficits noted. Reports pain in anterior aspect of left shoulder ml4 Parent/caregiver report the patient having sx. 12:41 General: Patient assissted into hospital WC and transported to ED exit where met ml4 with vehicle. 3 assist help to transfer patient into personal vehicle.. Vital Signs: 11:20 Resp 18; Weight 90.72 kg (R); Height 6 ft. 2 in. ; ss 11:29 BP 116 / 80; Pulse 73; Resp 18; Temp 97; Pulse Ox 96% ; Pain 0/10; ml4 11:20 Body Mass Index 25.68 (90.72 kg, 187.96 cm) ss 11:29 Pain Scale: Adult ml4 Hartwick Coma Score: 11:30 Eye Response: spontaneous(4). Motor Response: obeys commands(6). Verbal Response: ml4 confused(4). Total: 14. ED Course: 11:00 Patient arrived in ED. im 11:02 Luis M Gonzalez MD is Attending Physician. namrata 11:24 Triage completed. ss 11:24 Arm band placed on right wrist. ss 11:25 HOWARD BakerIII, Alfred, RN is Primary Nurse. ml4 11:29 Shoulder Left (2 View) XRAY In Process Unspecified. EDMS 11:30 No apparent distress. Awaiting radiology results. Pt visited by . ml4 11:30 Patient has correct armband on for positive identification. Fall risk band placed. Bed ml4 in low position. Call light in reach. Side rails up X2. Adult w/ patient. Provided Education on: N/A. Door closed. Warm blanket given. Head of bed elevated. 11:30 No provider procedures requiring assistance completed. ml4 11:40 Diaz Feng MD is Referral Physician. [facility] 12:41 Patient did not have IV access during this emergency room visit. ml4 12:41 Sling applied to left arm. ml4 Administered Medications: No medications were administered Medication: 11:20 VIS not applicable for this client. Outcome: 11:33 Condition: good ml4 11:40 Discharge ordered by . [facility] 12:21 Discharged to home via wheelchair, with family. ml4 12:21 Discharge instructions given to patient, family, Instructed on discharge instructions, follow up and referral plans. Demonstrated understanding of instructions, follow-up care. 12:42 Patient left the ED. ml4 Signatures: Dispatcher [employer] EDLuis M Delgadillo MD MD cha Blanchard, Shelby, RN RN Yarelis Guadarrama, RNIII, Alfred, RN RN ml4
--- NOTE | 2022-10-30 11:40 | EDPHYS ---
Physician Documentation [facility] Name: Rajendra Collado Age: 81 yrs Sex: Male : 1940 Arrival Date: 10/30/2022 Time: 10:56 Bed 16 Private MD: KELYL Physician Luis M Gonzalez HPI: 10/30 11:34 This 81 yrs old Male presents to ER via Wheelchair with complaints of namrata Shoulder Pain - left. 11:34 The patient or guardian complains of decreased range of motion, pain, that is acute. namrata left shoulder. Context: resulted from from a chronic condition, degenerative joint disease, The patient experiences decreased range of motion. Onset: The symptoms/episode began/occurred 2 day(s) ago. Modifying factors: the symptoms are alleviated by remaining still, sling, The symptoms are aggravated by lifting weight, movement. Associated signs and symptoms: The patient has no apparent associated signs or symptoms. Severity of symptoms: At their worst the symptoms were mild, moderate, in the emergency department the symptoms have improved, moderately. Treatment prior to arrival includes: over the counter medications, Tylenol. The patient has experienced similar episodes in the past, a few times. 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 - Social history:: Smoking status: Patient denies any tobacco usage or history of. Patient/guardian denies using alcohol, street drugs, IV drugs. - Family history:: not pertinent. ROS: 11:34 Constitutional: Negative for fever, chills, and weight loss, Eyes: Negative for injury, namrata pain, redness, and discharge, ENT: Negative for injury, pain, and discharge, Neck: Negative for injury, pain, and swelling, Cardiovascular: Negative for chest pain, palpitations, and edema, Respiratory: Negative for shortness of breath, cough, wheezing, and pleuritic chest pain, Abdomen/GI: Negative for abdominal pain, nausea, vomiting, diarrhea, and constipation, Back: Negative for injury and pain, : Negative for injury, bleeding, discharge, and swelling, Skin: Negative for injury, rash, and discoloration, Neuro: Negative for headache, weakness, numbness, tingling, and seizure, Psych: Negative for depression, anxiety, suicide ideation, homicidal ideation, and hallucinations, Allergy/Immunology: Negative for hives, rash, and allergies, Endocrine: Negative for neck swelling, polydipsia, polyuria, polyphagia, and marked weight changes, Hematologic/Lymphatic: Negative for swollen nodes, abnormal bleeding, and unusual bruising. 11:34 MS/extremity: Positive for decreased range of motion, pain, tenderness. Exam: 11:34 Constitutional: This is a well developed, well nourished patient who is awake, alert, namrata and in no acute distress. Head/Face: Normocephalic, atraumatic. Eyes: Pupils equal round and reactive to light, extra-ocular motions intact. Lids and lashes normal. Conjunctiva and sclera are non-icteric and not injected. Cornea within normal limits. Periorbital areas with no swelling, redness, or edema. ENT: Nares patent. No nasal discharge, no septal abnormalities noted. Tympanic membranes are normal and external auditory canals are clear. Oropharynx with no redness, swelling, or masses, exudates, or evidence of obstruction, uvula midline. Mucous membranes moist. Neck: Trachea midline, no thyromegaly or masses palpated, and no cervical lymphadenopathy. Supple, full range of motion without nuchal rigidity, or vertebral point tenderness. No Meningismus. Chest/axilla: Normal chest wall appearance and motion. Nontender with no deformity. No lesions are appreciated. Cardiovascular: Regular rate and rhythm with a normal S1 and S2. No gallops, murmurs, or rubs. Normal PMI, no JVD. No pulse deficits. Respiratory: Lungs have equal breath sounds bilaterally, clear to auscultation and percussion. No rales, rhonchi or wheezes noted. No increased work of breathing, no retractions or nasal flaring. Abdomen/GI: Soft, non-tender, with normal bowel sounds. No distension or tympany. No guarding or rebound. No evidence of tenderness throughout. Back: No spinal tenderness. No costovertebral tenderness. Full range of motion. Male : Normal genitalia with no discharge or lesions. Skin: Warm, dry with normal turgor. Normal color with no rashes, no lesions, and no evidence of cellulitis. Neuro: Awake and alert, GCS 15, oriented to person, place, time, and situation. Cranial nerves II-XII grossly intact. Motor strength 5/5 in all extremities. Sensory grossly intact. Cerebellar exam normal. Normal gait. Psych: Awake, alert, with orientation to person, place and time. Behavior, mood, and affect are within normal limits. 11:34 Musculoskeletal/extremity: ROM: limited active range of motion, limited passive range of motion, in the anterior aspect of left shoulder and posterior aspect of left shoulder, Circulation is intact in all extremities. Sensation intact. Compartment Syndrome exam of affected extremity: is normal. DVT Exam: no swelling, no tenderness, negative Homans' sign noted on exam, no appreciated bluish discoloration, no erythema, no increased warmth, pain. Vital Signs: 11:20 Resp 18; Weight 90.72 kg (R); Height 6 ft. 2 in. ; ss 11:29 BP 116 / 80; Pulse 73; Resp 18; Temp 97; Pulse Ox 96% ; Pain 0/10; ml4 11:20 Body Mass Index 25.68 (90.72 kg, 187.96 cm) ss 11:29 Pain Scale: Adult ml4 Palmer Coma Score: 11:30 Eye Response: spontaneous(4). Motor Response: obeys commands(6). Verbal Response: ml4 confused(4). Total: 14. MDM: 11:02 Patient medically screened. namrata 10/30 11:08 Order name: Shoulder Left (2 View) XRAY; Complete Time: 12:20 namrata 10/30 11:08 Order name: Sling; Complete Time: 12:21 namrata Administered Medications: No medications were administered Disposition Summary: 10/30/22 11:40 Discharge Ordered Location: Home namrata Problem: new namrata Symptoms: have improved namrata Condition: Stable namrata Diagnosis - Pain in left shoulder namrata - Unspecified symptoms and signs involving the musculoskeletal system namrata - Dementia in other diseases classified elsewhere without behavioral disturbance namrata Followup: namrata - With: Private Physician - When: 2 - 3 days - Reason: Recheck today's complaints, Continuance of care, Re-evaluation by your physician Followup: namrata - With: Diaz Feng MD - When: 2 - 3 days - Reason: Recheck today's complaints, Continuance of care, Re-evaluation by your physician Discharge Instructions: - Joint Pain namrata - Arthritis namrata - Dementia namrata - Musculoskeletal Pain namrata - Shoulder Pain namrata - How to Use Cold Therapy, [id number]-dh-[id number] namrata - Shoulder Range of Motion Exercises namrata - Shoulder Pain, Epwk-jy-Ehar namrata - Arthritis, Dbau-fa-Vilz namrata - Joint Pain, Jxid-nw-Fnfk namrata - Discharge Summary Sheet ss Forms: - Medication Reconciliation Form [facility] - Thank You Letter [facility] - Antibiotic Education namrata - Prescription Opioid Use namrata - Patient Portal Instructions [facility] - Leadership Thank You Letter [facility] Prescriptions: - Tylenol 325 mg Oral Tablet - take 2 tablets by ORAL route every 6 hours as needed; 100 tablet; Refills: 0, namrata Product Selection Permitted Signatures: Dispatcher [employer] Luis M Johnson MD MD cha Blanchard, Shelby, RN RN ss Olivia RNIII, Alfred RN RN ml4
[2022-10-30 12:48] VITALS: BP 116/80; TEMP 97; O2SAT 96
== END 2022-10-30 12:42 | disposition home or self-care (01) ==
LOC: ER 10:56
DX: R29.91 Unspecified symptoms and signs involving the musculoskeletal system (principal); F03.90 Unspecified dementia, unspecified severity, without behavioral disturbance, psychotic disturbance, mood disturbance, and anxiety; I10 Essential (primary) hypertension; Z95.818 Presence of other cardiac implants and grafts
CPT/HCPCS: 99283